=== PATIENT | male | born 1990 | race Caucasian/White ===

== ENCOUNTER 2020-07-12 21:39 | Observation (INO) ==
--- OUTSIDE RECORDS SUMMARY | 2020-07-12 21:41 | External Medical Summary | Continuity of Care Document ---
:1990 Author Name Tyrone Garcia Address Unavailable Unavailable , Care Team Providers Name Role Phone Unavailable Unavailable Unavailable Thomas Garcia Unavailable [email or web address] Kevin FONSECA Unavailable Unavailable Unavailable Unavailable Unavailable Problems Nephrolithiasis (592.0) (N20.0) Allergies and Adverse Reactions No Known Drug Allergies (Allergy) Medications oxyCODONE-Acetaminophen 10-325 MG Oral T ablet; TAKE 1 TABLET 4 TIMES DAILY NEEDED FOR PAIN. Radha Guzman Laie Start: 26-Nov-2015 Quantity: 30 Refills: 0 Adderall Radha HEREDIA Refills: 0 PriLOSEC OTC Radha BEJARANO Refills: 0 Procedures Procedures not documented Immunizations Immunizations not documented Family History Father Family history of kidney stones (V18.69) (Z84.1) Status: Act benny Social History - Smoking Status Never smoked tobacco Plan of Treatment Planned Observations Planned Goals not documented Results No Known Results Results not documented
[2020-07-12] MEDS ORDERED: ONDANSETRON INJ 2 MG/ML 2 ML VIAL IV STA (22:00)
[2020-07-12] MEDS ORDERED: KETOROLAC TROMETHAMINE 15 MG/ML VIAL IV STA (22:00)
[2020-07-12] MEDS ORDERED: FAMOTIDINE 20MG/5ML IV PUSH IV STA (22:00)
[2020-07-12] MEDS ORDERED: SODIUM CHLORIDE 0.9% 1000ML 1,000 ML IV SCH (22:00)
[2020-07-12] MEDS ORDERED: DiphenhydrAMINE HCL 50 MG/ML VIAL IV STA (22:00)
--- NOTE | 2020-07-12 22:05 | Emergency Department Note ---
Impression & Plan RUQ abdominal pain, Acute cholecystitis, Leukocytosis ED Provider Note NAME: SOLEDAD LINCOLN AGE: 29 SEX: M : 1990 ARRIVES VIA: Walk-In INFORMANT: [Patient][family] ED PROVIDER(S): [Renard Shi MD] CHIEF COMPLAINT: Epigastric pain HISTORY OF PRESENT ILLNESS: The patient is a 29-year-old male who presents to the ED with complaints of epigastric pain that has been coming and going for 2, maybe 3 weeks. Today's pain has been with him all day and will not subside. He describes the pain as a 10/10. The pain is nonradiating. He has had nausea without vomiting. He has not had diarrhea. There has been no chest pain per se, no shortness of breath. No fever, chills, cough or congestion. He states that he thinks he may be having difficulty digesting food. He has a history of kidney stones but this does not feel like a stone. REVIEW OF SYSTEMS: See HPI for pertinent positives and negatives. A total of ten systems were r eviewed and were otherwise negative. PMHx/PSHx: See Below SOCIAL HISTORY: See Below. PHYSICAL EXAM: GENERAL: Patient is in moderate distress from pain. Rolling around and writhing on the bed. HEENT: No acute trauma, normocephalic atraumatic, mucous membranes moist, no nasal congestion, no scleral icterus. NECK: No stridor, no adenopathy, no meningismus, trachea is midline. LUNGS: Clear to auscultation bilaterally, no wheeze, no rhonchi, breath sounds equal. HEART: Without murmurs gallops or rubs, regular rate and rhythm. ABDOMEN: Soft, significantly tender in the epigastrium and right upper quadrant, bowel sounds positive, no hernias, no peritonitis. EXTREMITIES: No cyanosis or edema, full range of motion of all the joints without pain or difficulty, no signs for acute trauma. NEUROLOGIC: Oriented x 3, no acute motor or sensory deficits, no focal weakness. SKIN: No rash, no jaundice, no diaphoresis. DIFFERENTIAL DIAGNOSIS: Appendicitis, testicular torsion, infections, diverticulitis, UTI, obstruction, free air, [place], ulcer, gastritis, mesenteric ischemia, aortic pathology, inflammatory bowel disease, renal colic, PUD, pancreatitis, biliary pathology, hernia, volvulus, constipation, as well as other pathologies. EMERGENCY DEPARTMENT COURSE/PROCEDURES: ECG: Indication was epigastric abdominal pain. The ECG shows a sinus tachycardia with a rate of 101. There is no ST elevation, no PVCs. The QTc is 466. Continuous Cardiac Monitoring: An order was placed for continuous cardiac monitoring. The monitor shows a rate of 88 with normal sinus rhythm. MEDICAL DECISION MAKING: There is a mild leukocytosis, this would be consistent with infection. There is a normal hemoglobin and platelet count. Renal panel testing does not show renal failure or significant electrolyte abnormality. Alk phos slightly elevated, the remaining liver enzymes were unremarkable. Lipase did not show any evidence for pancreatitis. Urinalysis did not show evidence for infection. Urine tox is pending. Chest film did not show mediastinal widening, free air or pneumonia. Abdominal and pelvis CT shows evidence for acute cholecystitis. Gallstones were seen. There was no bowel obstruction or other acute surgical process by CT scan. The patient was quite uncomfortable when he arrived. He received IV saline for hydration. He was given IV morphine and IV Toradol, he received IV Pepcid and IV Benadryl. He was eventually written for some IV Dilaudid for additional pain control. He did receive IV Zosyn for antibiotic coverage. I spoke to the patient about his findings. He does require a hospital stay. I did consult general surgery. A medical admission was recommended. Case management has been involved. I did consult the on-call hospitalist. Past Med/Surg History Medical History Kidney stones Renal colic Social History Smoking Status: Never smoker Tobacco Type: E-cigarettes / Vaping Feels Safe at Home: Yes Allergies Allergies Allergy/AdvReac Type Severity Reaction Status Date / Time No Known Allergies Allergy Verified 07/12/20 23:00 Home Meds Home Medications Medication Instructions Recorded Confirmed buprenorphine HCl [Subutex] 2 mg SUBLINGUAL DAILY 07/12/20 07/12/20 dextroamphetamine 30 mg PO BID 07/12/20 07/12/20 gabapentin 200 mg PO QID 07/12/20 07/12/20 ibuprofen 600 mg PO Q6H PRN 07/12/20 07/12/20 Results & Data (ED) Vital Signs Vital Signs - 24 hr 07/12/20 21:41 07/12/20 23:41 Temperature 36.6 C Temperature Source Oral Pulse Rate 95 H 88 Pulse Rate [Right Finger] 88 Respiratory Rate 20 20 Respiratory Effort / Characteristics Non-Labored Non-Labored Spontaneous Respiratory Depth Normal Normal Blood Pressure 156/83 H Blood Pressure [Left Arm] 130/78 Blood Pressure Mean 107 Blood Pressure Mean [Left Arm] 95 Pulse Oximetry 100 98 Oxygen Delivery Method Room Air Room Air Sepsis Recent Fever Within 48 Hours No Sepsis New/Unexplained Change in Mental Status No Sepsis Action Taken by Nursing No Action Required Home Medications Current Medication List: was personally reviewed by me Laboratory Data Attestation: I reviewed the patient's lab results. Result diagrams: 07/12/20 22:15 07/12/20 22:15 Lab Results 07/12/20 07/12/20 07/12/20 Range/Units 22:15 22:15 23:25 WBC 11.45 H (4.8-10.8) K/uL RBC 5.01 (4.7-6.1) M/uL Hgb 14.7 (14.0-18.0) g/dL Hct 41.9 L (42-52) % MCV 83.6 (80-100) fL MCH 29.3 (25-34) pg MCHC 35.1 (32-36) g/dL RDW Std Deviation 39.5 (36.4-46.3) fL RDW Coeff of Stevan 13.2 (11.5-14.5) % Plt Count 298 (130-400) K/uL MPV 9.8 (7.4-10.4) fL Immature Gran % (Auto) 0.2 % Neut % (Auto) 73.2 % Lymph % (Auto) 15.9 % [place] % (Auto) 8.4 % Eos % (Auto) 2.0 % Baso % (Auto) 0.3 % Neut # (Auto) 8.39 H (1.4-6.5) K/uL Lymph # (Auto) 1.82 (1.2-3.4) K/uL Turner # (Auto) 0.96 H (0.11-0.59) K/uL Eos # (Auto) 0.23 (0-0.5) K/uL Baso # (Auto) 0.03 (0-0.2) K/uL Immature Gran # (Auto) 0.02 (0.00-0.02) K/uL Sodium 141 (136-145) mmol/L Potassium 3.5 (3.5-5.1) mmol/L Chloride 104 (98-107) mmol/L Carbon Dioxide 30 (21-32) mmol/L Anion Gap 7.0 (3-11) BUN 8 (7-18) mg/dl Creatinine 1.14 (0.6-1.4) mg/dl Est Cr Clr Drug Dosing 109.2 ml/min Est GFR ( Amer) 98.8 Est GFR (Non-Af Amer) 85.2 BUN/Creatinine Ratio 7.0 L (10-20) Glucose 90 (70-99) mg/dl Calcium 10.2 H (8.5-10.1) mg/dl Total Bilirubin 0.4 (0.2-1) mg/dl AST 11 L (15-37) U/L ALT 18 (12-78) U/L Alkaline Phosphatase 135 H (45-117) U/L Troponin I < 0.015 (0-0.045) ng/ml Total Protein 8.6 H (6.4-8.2) gm/dl Albumin 4.0 (3.4-5.0) gm/dl Globulin 4.6 H (2.5-4.0) gm/dl Albumin/Globulin Ratio 0.9 (0.9-2) Lipase 124 (73-393) U/L Urine Color Yellow Urine Appearance Clear (Clear) Urine pH 8.5 H (4.5-7.5) Ur Specific [place] 1.024 (1.000-1.030) Urine Protein Negative (Negative) Urine Glucose (UA) Negative (Negative) Urine Ketones Negative (Negative) Urine Blood Negative (Negative) Urine Nitrite Negative (Negative) Urine Bilirubin Negative (Negative) Urine Urobilinogen Negative (Negative) Ur Leukocyte Esterase 1+ H (Negative) Urine WBC (Auto) 10-30 H (0-5) /hpf Urine RBC (Auto) 0-4 (0-4) /hpf U Hyaline Cast (Auto) 1-5 (0-5) /lpf U Epithel Cells (Auto) 10-20 H (0-5) /lpf Urine Bacteria (Auto) Negative (Negative) Administered Medications Piperacillin Sod/Tazobactam Sod (Zosyn) 4.5 gm in 120 mls @ 240 mls/hr IV NOW ONE Stop: 07/13/20 00:11 Last Admin: 07/12/20 23:49 Dose: 240 mls/hr Documented by: [id number] Morphine Sulfate (Morphine Sulfate 4 Mg/Ml 1 Ml Carp\Vial) 4 mg IV Q15M PRN PRN Reason: Pain Stop: 07/26/20 21:59 Last Admin: 07/12/20 23:38 Dose: 4 mg Documented by: [id number] Admin: 07/12/20 23:01 Dose: 4 mg Documented by: [id number] Admin: 07/12/20 22:19 Dose: 4 mg Documented by: [id number] Discontinued Medications Diphenhydramine HCl (Diphenhydramine Hcl 50 Mg/Ml Vial) 25 mg IV NOW STA Stop: 07/12/20 22:01 Last Admin: 07/12/20 22:19 Dose: 25 mg Documented by: [id number] Famotidine (Famotidine 20mg/5ml Iv Push) 20 mg IV ONE STA Stop: 07/12/20 22:01 Last Admin: 07/12/20 22:18 Dose: 20 mg Documented by: [id number] Sodium Chloride (Nss 1000ml) 1,000 mls @ 999 mls/hr IV .Q1H1M NIKO Stop: 07/12/20 23:00 Last Infusion: 07/12/20 22:58 Dose: 0 mls/hr Documented by: [id number] Admin: 07/12/20 22:18 Dose: 999 mls/hr Documented by: [id number] Ioversol (Ioversol 100ml) 93 ml IV ONCE ONE Stop: 07/12/20 23:08 Last Admin: 07/12/20 23:07 Dose: 1 ml Documented by: [id number] Ketorolac Tromethamine (Ketorolac Tromethamine 15 Mg/Ml Vial) 15 mg IV NOW STA Stop: 07/12/20 22:01 Last Admin: 07/12/20 22:18 Dose: 15 mg Documented by: [id number] Ondansetron HCl (Ondansetron Inj 2 Mg/Ml 2 Ml Vial) 4 mg IV NOW STA Stop: 07/12/20 22:01 Last Admin: 07/12/20 22:18 Dose: 4 mg Documented by: [id number] Imaging Data Attestation: I personally reviewed and interpreted this imaging study as foll ows: My Impression: Chest x-ray: There is no pneumonia, free air or pneumothorax. The lungs appear clear. Radiologist's Impression: Abdominal and pelvis CT without contrast: Gallstones within the gallbladder with gallbladder wall edema. The findings are worrisome for acute cholecystitis. No other acute findings by CT. Blood Pressure Blood Pressure Findings: Elevated blood pressure Blood Pressure Disposition: further management by hospitalist Discharge Plan Visit Data Chief Complaint: Food Bolus Stated Complaint: ESOPHAGEAL PAIN ED Provider: Renard Shi Discharge Problem: RUQ abdominal pain, Acute cholecystitis, Leukocytosis Patient Disposition: Admitted As Inpatient Condition: Fair Forms Stand Alone Forms: My [facility] Prescriptions Prescriptions: No Action dextroamphetamine 10 mg tablet 30 mg PO BID RF: 0 ibuprofen 200 mg Tablet 600 mg PO Q6H PRN (Reason: Pain) RF: 0 gabapentin 100 mg capsule 200 mg PO QID RF: 0 buprenorphine HCl [Subutex] 2 mg Tablet, Sublingual 2 mg SUBLINGUAL DAILY RF: 0 Referrals Referrals: Nadia Hicks MD [Primary Care Provider] - Discharge Problem: Leukocytosis Qualifiers: Leukocytosis type: unspecified Qualified Code(s): D72.829 - Elevated white blood cell count, unspecified
[2020-07-12] MEDS: MoRPHine SULFATE 4 MG/ML 1 ML CARP\\VIAL IV PRN ×3 (22:19→23:38)
[2020-07-12 22:29] LABS: Basophils # (auto) 0.03 K/uL (0-0.2); Basophils % (auto) 0.3 %; Eosinophils # (auto) 0.23 K/uL (0-0.5); Hematocrit (blood only) 41.9 % (42-52); Hemoglobin 14.7 g/dL (14.0-18.0); Immature Granulocytes # (auto) 0.02 K/uL (0.00-0.02); Immature Granulocytes % (auto) 0.2 %; Lymphocytes # (auto) 1.82 K/uL (1.2-3.4); Lymphocytes % (auto) 15.9 %; Mean Corpuscular Hemoglobin 29.3 pg (25-34); Mean Corpuscular Hgb Conc 35.1 g/dL (32-36); Mean Corpuscular Volume 83.6 fL (80-100); Mean Platelet Volume 9.8 fL (7.4-10.4); Monocytes # (auto) 0.96 K/uL (0.11-0.59); Monocytes % (auto) 8.4 %; Neutrophils # (auto) 8.39 K/uL (1.4-6.5); Neutrophils % (auto) 73.2 %; Platelet Count 298 K/uL (130-400); RDW Coefficient of Variation 13.2 % (11.5-14.5); RDW Standard Deviation 39.5 fL (36.4-46.3); Red Blood Count 5.01 M/uL (4.7-6.1); White Blood Count 11.45 K/uL (4.8-10.8)
[2020-07-12 22:48] LABS: Alanine Aminotransferase 18 U/L (12-78); Aspartate Aminotransferase 11 U/L (15-37); Blood Urea Nitrogen 8 mg/dl (7-18); Calcium 10.2 mg/dl (8.5-10.1); Carbon Dioxide 30 mmol/L (21-32); Chloride 104 mmol/L (98-107); Creatinine Clr Calc Pharmacy 109.2 ml/min; Est GFR (African American) 98.8; Est GFR (Non-African American) 85.2; Glucose 90 mg/dl (70-99); Lipase 124 U/L (73-393); Potassium 3.5 mmol/L (3.5-5.1); Sodium 141 mmol/L (136-145)
[2020-07-12 22:52] LABS: Albumin Globulin Ratio 0.9 (0.9-2); Alkaline Phosphatase 135 U/L (45-117); Bilirubin,Total 0.4 mg/dl (0.2-1); Globulin 4.6 gm/dl (2.5-4.0); Total Protein 8.6 gm/dl (6.4-8.2); Troponin I < 0.015 ng/ml (0-0.045)
[2020-07-12] MEDS ORDERED: IOVERSOL 100ml IV ONE (23:07)
[2020-07-12 23:39] LABS: Appearance Urine Clear (Clear); Bacteria Urine Automated Negative (Negative); Bilirubin Urine Negative (Negative); Blood Urine Negative (Negative); Color Urine Yellow; Glucose Urine UA Negative (Negative); Ketones Urine Negative (Negative); Leukocyte Esterase Urine 1+ (Negative); Nitrite Urine Negative (Negative); Protein Urine Negative (Negative); RBC Urine Automated 0-4 /hpf (0-4); Specific Gravity Urine 1.024 (1.000-1.030); Urobilinogen Urine Negative (Negative); pH Urine 8.5 (4.5-7.5)
[2020-07-12] MEDS ORDERED: PIPERACILLIN/TAZOBACTAM 4.5 GM/120 ML BAG IV ONE (23:42)
[2020-07-12] MEDS ORDERED: PIPERACILL/TAZOBAC CONSULT ACTIVE PRN (23:42)
[2020-07-12] MEDS ORDERED: HYDROmorphone INJ 1 MG/ML SYRINGE IV STA (23:49)
[2020-07-13 00:03] LABS: Amphetamines+Metham, Urine Pos (Neg); Barbiturates, Urine Neg (Neg); Benzodiazepine, Urine Neg (Neg); Cocaine, Urine Neg (Neg); MDMA (Ecstacy), Urine Pos (Neg); Methadone, Urine Neg (Neg); Opiate, Urine Pos (Neg); Phencyclidine, Urine Neg (Neg)
--- NOTE | 2020-07-13 00:48 | History & Physical Report ---
Date of Service July 13, 2020 Assessment & Plan (1) RUQ abdominal pain: 29-year-old male with past medical history ADHD, Tourette's presents with concerns of epigastric abdominal pain found to have concern for cholecystitis on abdomen pelvis CT imaging. Cholecystitis Abdomen pelvis CT ([facility]): Gallstones within the gallbladder with gallbladder wall edema. The findings are worrisome for acute cholecystitis. No other acute findings. We will make patient n.p.o. IVF with NSS@80 mls/hr IV Zosyn for antibiotic coverage Pain management with IV morphine 2 mg every 4 as needed IV Zofran PRN for nausea We will order preop COVID testing Appreciate surgery consult Opiate dependence Secondary to oxycodone dependence for diagnosis of kidney stones 4 months ago Continue Subutex 2 mg SL daily. Patient notes that he does not take this every day, just as needed Tourette's syndrome Gabapentin 200 mg 4 times daily ADHD Continue dextroamphetamine 30 mg twice daily FEN/GI: N.p.o. NSS@80 DVT prophylaxis: Lovenox SQ Full code Dispo: MedSurg History of Present Illness Chief Complaint: Abdominal pain Primary Care Provider: Nadia Hicks MD 29-year-old male with past medical history ADHD, Tourette's presents with concerns of epigastric abdominal pain that has been ongoing for the past 2 to 3 weeks. Usually pain goes away on its own, however today pain was unrelenting and did not subside so patient presented to ED. Described as sharp intermittent, nonradiating, 10 out of 10 on severity scale. Patient notes pain is alleviated by taking prescribed Suboxone and gabapentin. No known exacerbating factors. Patient has never had abdominal pain like this ever before. Patient denies any fevers, chills, sweats, nausea, vomiting, diarrhea, black or tarry stools, chest pain, shortness of breath, palpitations, edema, dec reased appetite or ingestion of suspicious foods, known sick contacts or recent travel anywhere. Patient with no other acute concerns or complaints. Pertinent labs: WBC 11.45, alk phos 135, LFTs WNL, lipase WNL, largely unremarkable CBC CMP Chest x-ray: No acute process per interpretation Abdomen pelvis CT ([facility]): Gallstones within the gallbladder with gallbladder wall edema. The findings are worrisome for acute cholecystitis. No other acute findings. ER course: IV diphenhydramine 25 mg, IV famotidine 20 mg, IV Dilaudid 1 mg, IV Toradol 15 mg, IV morphine 4 mg, IV Zofran 4 mg, IV Zosyn 4.5 g Abdominal surgical history: None Allergies Allergy/AdvReac Type Severity Reaction Status Date / Time No Known Allergies Allergy Verified 07/12/20 23:00 Home Medications Home Medications Medication Instructions Recorded Confirmed Type buprenorphine HCl [Subutex] 2 mg SUBLINGUAL DAILY 07/12/20 07/12/20 History dextroamphetamine 30 mg PO BID 07/12/20 07/12/20 History gabapentin 200 mg PO QID 07/12/20 07/12/20 History ibuprofen 600 mg PO Q6H PRN 07/12/20 07/12/20 History Past Med/Surg History Medical History Kidney stones Renal colic Social History Smoking Status: Current some day smoker Tobacco Type: E-cigarettes / Vaping Second Hand Exposure: No; Do You Dip or Chew Tobacco: No; Tobacco Cessation Education Requested by Patient: No Hx Alcohol Use: No Hx Substance Use: Yes Preferred Language: Kittitian Communication Ability: Effective Event Marketing Coordinator Required: No Beliefs That Will Affect Care: None Current Living Situation: Alone Other Information That Helps Us Care for You: No Feels Safe at Home: Yes Safety Concerns: Feels Safe At This Time Assistive Devices: None Review of Systems Review of Systems: All systems reviewed & are unremarkable except as noted in HPI & below Physical Exam Constitutional: + acute distress Eyes: PERRL, conjunctivae normal, anicteric sclerae ENMT: external ear and nose normal, oropharynx normal Respiratory: normal respiratory effort, lungs clear to auscultation Cardiovascular: RRR, no murmur, no edema Gastrointestinal (Abdomen): Inspection/Auscultation: normal bowel sounds P ercussion/Palpation: + abdomen tender (Right upper quadrant) and abdomen soft Positive Oropeza's Skin: no rashes, warm and dry Psychiatric: A+Ox3, euthymic affect Results & Data Results & Data ([facility]) Vital Signs (Past 12 Hours) Vital Signs Temp Pulse Pulse Resp BP BP Pulse Ox 09/26/20 23:41 88 88 20 130/78 98 07/12/20 21:41 36.6 C 95 H 20 156/83 H 100 Laboratory Results Laboratory Results - last 24 hr 07/12/20 07/12/20 07/12/20 22:15 22:15 23:25 WBC 11.45 H RBC 5.01 Hgb 14.7 Hct 41.9 L MCV 83.6 MCH 29.3 MCHC 35.1 RDW Std Deviation 39.5 RDW Coeff of Stevan 13.2 Plt Count 298 MPV 9.8 Immature Gran % (Auto) 0.2 Neut % (Auto) 73.2 Lymph % (Auto) 15.9 [place] % (Auto) 8.4 Eos % (Auto) 2.0 Baso % (Auto) 0.3 Neut # (Auto) 8.39 H Lymph # (Auto) 1.82 [place] # (Auto) 0.96 H Eos # (Auto) 0.23 Baso # (Auto) 0.03 Immature Gran # (Auto) 0.02 Sodium 141 Potassium 3.5 Chloride 104 Carbon Dioxide 30 Anion Gap 7.0 BUN 8 Creatinine 1.14 Est Cr Clr Drug Dosing 109.2 Est GFR ( Amer) 98.8 Est GFR (Non-Af Amer) 85.2 BUN/Creatinine Ratio 7.0 L Glucose 90 Calcium 10.2 H Total Bilirubin 0.4 AST 11 L ALT 18 Alkaline Phosphatase 135 H Troponin I < 0.015 Total Protein 8.6 H Albumin 4.0 Globulin 4.6 H Albumin/Globulin Ratio 0.9 Lipase 124 Urine Color Yellow Urine Appearance Clear Urine pH 8.5 H Ur Specific [place] 1.024 Urine Protein Negative Urine Glucose (UA) Negative Urine Ketones Negative Urine Blood Negative Urine Nitrite Negative Urine Bilirubin Negative Urine Urobilinogen Negative Ur Leukocyte Esterase 1+ H Urine WBC (Auto) 10-30 H Urine RBC (Auto) 0-4 U Hyaline Cast (Auto) 1-5 U Epithel Cells (Auto) 10-20 H Urine Bacteria (Auto) Negative Urine Opiates Screen U Codeine Confrm GC/MS Ur Morphine (GC/MS) Ur Hydrocodone (GC/MS) Ur Norhydrocodone Ur Noroxycodone Urine Oxycodone (GC/MS) U Oxymorphone GC/MS Ur Methadone, Qual Ur Hydromorphone (GC/MS) Urine Barbiturates Ur Phencyclidine (PCP) U Amphetamines Confirm U Amphetamin/Meth Scrn U Methamphetamin Confrm Urine MDEA MDMA (Ecstasy) Screen MDMA Urine MDMA U Benzodiazepines Scrn Ur Cocaine Metabolite U Marijuana (THC) Screen Drug Screen Comment 07/12/20 07/12/20 23:25 23:25 WBC RBC Hgb Hct MCV MCH MCHC RDW Std Deviation RDW Coeff of Stevan Plt Count MPV Immature Gran % (Auto) Neut % (Auto) Lymph % (Auto) [place] % (Auto) Eos % (Auto) Baso % (Auto) Neut # (Auto) Lymph # (Auto) [place] # (Auto) Eos # (Auto) Baso # (Auto) Immature Gran # (Auto) Sodium Potassium Chloride Carbon Dioxide Anion Gap BUN Creatinine Est Cr Clr Drug Dosing Est GFR ( Amer) Est GFR (Non-Af Amer) BUN/Creatinine Ratio Glucose Calcium Total Bilirubin AST ALT Alkaline Phosphatase Troponin I Total Protein Albumin Globulin Albumin/Globulin Ratio Lipase Urine Color Urine Appearance Urine pH Ur Specific [place] Urine Protein Urine Glucose (UA) Urine Ketones Urine Blood Urine Nitrite Urine Bilirubin Urine Urobilinogen Ur Leukocyte Esterase Urine WBC (Auto) Urine RBC (Auto) U Hyaline Cast (Auto) U Epithel Cells (Auto) Urine Bacteria (Auto) Urine Opiates Screen Pos H U Codeine Confrm GC/MS Pending Ur Morphine (GC/MS) Pending Ur Hydrocodone (GC/MS) Pending Ur Norhydrocodone Pending Ur Noroxycodone Pending Urine Oxycodone (GC/MS) Pending U Oxymorphone GC/MS Pending Ur Methadone, Qual Neg Ur Hydromorphone (GC/MS) Pending Urine Barbiturates Neg Ur Phencyclidine (PCP) Neg U Amphetamines Confirm Pending U Amphetamin/Meth Scrn Pos H U Methamphetamin Confrm Pending Urine MDEA Pending MDMA (Ecstasy) Screen Pos H MDMA Pending Urine MDMA Pending U Benzodiazepines Scrn Neg Ur Cocaine Metabolite Neg U Marijuana (THC) Screen Neg Drug Screen Comment Pending Medications Administered Current Inpatient Medications Miscellaneous Information (Piperacill/Tazobac Consult Active) 1 ea N/A UD PRN PRN Reason: Consult Stop: 08/11/20 23:41 Morphine Sulfate (Morphine Sulfate 4 Mg/Ml 1 Ml Carp\Vial) 4 mg IV Q15M PRN PRN Reason: Pain Stop: 07/26/20 21:59 Last Admin: 07/12/20 23:38 Dose: 4 mg Documented by: Code Status & VTE Plan Code Status Full Supervising Physician Co-Signing Physician Notes Patient seen and examined, chart reviewed, case discussed with Dr. Galvez and I agree with his assessment and plan as documented above. Briefly, patient is a 29yo male with history of renal stones, ADHD presenting with acute cholecystitis. Patient states he takes Subutex 2mg daily as needed for opiate cravings. Medication not on PDMP or on medication fill list when discussed with Pharmacy. Will confirm again with patient On exam he is afebrile, HD stable, in mild distress secondary to discomfort Nontoxic in appearance HEENT - NC/AT, PERRL, EOMI, MMM, Neck supple Heart - +S1/S2, regular, no m/r/g Lungs - CTA Abd - +BS, soft, NT/ND Ext - No edema Labs and images reviewed. Elevated ABC=11.45, A=135 CT with gallstones with gallbladder wall edema. FIndings worrisome for acute lesia Surgery consulted and requesting admission to medical service -Admit to medical -Zosyn -Pain control -Will confirm patient's Subutex dose and prescriber -Remainder of plan as above Resident Activity Tracking Resident Involvement: Resident Care Provided Care Provided: Adult Hospital Medicine
[2020-07-13] MEDS ORDERED: ALUMINUM/MAGNESIUM SUSP 30 ML UDC PO PRN (02:13)
[2020-07-13] MEDS ORDERED: ONDANSETRON INJ 2 MG/ML 2 ML VIAL IV PRN (02:13)
[2020-07-13] MEDS ORDERED: PIPERACILL/TAZOBAC CONSULT ACTIVE PRN (02:13)
[2020-07-13] MEDS ORDERED: ACETAMINOPHEN 325 MG TAB PO PRN (02:13)
[2020-07-13] MEDS: SODIUM CHLORIDE 0.9% 1000ML 1,000 ML IV SCH ×2 (02:51→16:14)
[2020-07-13] MEDS: [UNRECOGNIZED DRUG - OTHER] SCH ×3 (02:51→15:30)
--- NOTE | 2020-07-13 03:39 | Billing Data ---
Date of Service July 13, 2020 Coding Level of Care Code 45601 Initial Inpt Care Lvl 3
[2020-07-13] MEDS: PIPERACILLIN/TAZOBACTAM 3.375 GM in DEXTROSE 5% 100 ML IV SCH ×3 (04:53→21:21)
[2020-07-13 06:09] LABS: Basophils # (auto) 0.05 K/uL (0-0.2); Basophils % (auto) 0.5 %; Eosinophils % (auto) 3.9 %; Hematocrit (blood only) 38.1 % (42-52); Hemoglobin 12.1 g/dL (14.0-18.0); Immature Granulocytes # (auto) 0.01 K/uL (0.00-0.02); Immature Granulocytes % (auto) 0.1 %; Lymphocytes # (auto) 2.79 K/uL (1.2-3.4); Lymphocytes % (auto) 26.9 %; Mean Corpuscular Hemoglobin 27.3 pg (25-34); Mean Corpuscular Hgb Conc 31.8 g/dL (32-36); Mean Platelet Volume 9.8 fL (7.4-10.4); Monocytes # (auto) 1.23 K/uL (0.11-0.59); Monocytes % (auto) 11.8 %; Neutrophils % (auto) 56.8 %; Platelet Count 257 K/uL (130-400); RDW Coefficient of Variation 13.4 % (11.5-14.5); RDW Standard Deviation 42.4 fL (36.4-46.3); Red Blood Count 4.43 M/uL (4.7-6.1); White Blood Count 10.38 K/uL (4.8-10.8)
[2020-07-13 06:40] LABS: Albumin Level 3.1 gm/dl (3.4-5.0); BUN Creatinine Ratio 7.7 (10-20); Calcium 8.8 mg/dl (8.5-10.1); Creatinine Clr Calc Pharmacy 139.8 ml/min; Est GFR (African American) 132.1; Est GFR (Non-African American) 113.9; Potassium 3.7 mmol/L (3.5-5.1)
[2020-07-13 07:07] LABS: Albumin Globulin Ratio 0.9 (0.9-2); Bilirubin,Total 0.6 mg/dl (0.2-1); Globulin 3.5 gm/dl (2.5-4.0); Total Protein 6.6 gm/dl (6.4-8.2)
--- NOTE | 2020-07-13 08:34 | CT Scan Report ---
CT OF THE ABDOMEN AND PELVIS WITH CONTRAST CLINICAL HISTORY: Upper abdominal pain. Possible pancreatitis or bowel obstruction. COMPARISON STUDY: CT of the abdomen and pelvis November 15, 2015. Renal ultrasound September 18, 2018. TECHNIQUE: Following IV administration of Optiray-320, axial images of the abdomen and pelvis were ob tained from the lung bases to the proximal femurs. Images were reviewed in the axial, sagittal, and c oronal planes. IV contrast was administered without complication. Automated exposure control was uti lized for the study. A dose lowering technique was utilized adhering to the principles of ALARA. CT DOSE: 587.69 mGy.cm FINDINGS: Lung bases are unremarkable. No pneumatosis, free air or portal venous gas is present. Live r, spleen, adrenal glands, pancreas and kidneys are normal. There is no pancreatic ductal dilatation. There is no biliary ductal dilatation. There are multiple gallstones within the gallbladder. There i s moderate gallbladder wall thickening. There is minimal adjacent infiltration. The caliber and wall thickness of small and large bowel are normal. The appendix is normal. There is no hydronephrosis. Th ere are no suspicious skeletal lesions. There is no lymphadenopathy. Major vasculature is patent. IMPRESSION: Cholelithiasis and gallbladder wall thickening. The findings suggest acute cholecystitis . ACT 112: Negative or not required by law. Electronically signed by: Nathaniel Alex M.D. 07/13/2020 8:33 AM
--- NOTE | 2020-07-13 08:42 | XRay Report ---
XR chest 1V portable HISTORY: 29 years-old Male epig pain acute epigastric abdominal pain COMPARISON: CT abdomen and pelvis of same day TECHNIQUE: Portable AP view of the chest FINDINGS: Cardiomediastinal and hilar silhouettes are within normal limits. There is no pneumothorax, pleural e ffusion, airspace consolidation or overt pulmonary edema. Bones of the chest appear grossly intact. IMPRESSION: No acute process. ACT 112: Negative or not required by law. The above report was generated using voice recognition software. It may contain grammatical, syntax o r spelling errors. Electronically signed by: Ayaz Pena M.D. 07/13/2020 8:40 AM
[2020-07-13] MEDS: ENOXAPARIN INJ 40 MG/0.4 ML SYR SQ SCH (09:39)
[2020-07-13] MEDS: buprenorphine HCL 2 MG SUBL SL SCH (09:39)
[2020-07-13] MEDS: GABAPENTIN 100 MG CAP PO SCH ×4 (09:40→21:22)
--- NOTE | 2020-07-13 10:04 | Surgery Consultation ---
Date of Consultation July 13, 2020 Assessment & Plan (1) RUQ abdominal pain: (2) Acute cholecystitis: pt is a 29 [id number] male who was admitted to [facility] for acute cholecystitis, IMP: acute cholecystitis, cholelithiasis, Plan, I recommend to do laparoscopic cholecystectomy , possible open or cholangiogram tomorrow, D/W benefits, risks and alternatives of the surgery, the risks - infection, bleeding, injury CBD, may need ERCP, pt understood, he agrees with the surgery, I answered all questions, U/S study for gallbladder, NPO after MN, clear diet now, Present on Admission?: Yes (3) Cholelithiasis: Supervising Physician Co-Signing Physician Notes Patient seen and examined, chart reviewed, case discussed with Dr. Galvez and I agree with his assessment and plan as documented above. Briefly, patient is a 29yo male with history of renal stones, ADHD presenting with acute cholecystitis. Patient states he takes Subutex 2mg daily as needed for opiate cravings. Medication not on PDMP or on medication fill list when discussed with Pharmacy. Will confirm again with patient On exam he is afebrile, HD stable, in mild distress secondary to discomfort Nontoxic in appearance HEENT - NC/AT, PERRL, EOMI, MMM, Neck supple Heart - +S1/S2, regular, no m/r/g Lungs - CTA Abd - +BS, soft, NT/ND Ext - No edema Labs and images reviewed. Elevated ABC=11.45, A=135 CT with gallstones with gallbladder wall edema. FIndings worrisome for acute lesia Surgery consulted and requesting admission to medical service -Admit to medical -Zosyn -Pain control -Will confirm patient's Subutex dose and prescriber -Remainder of plan as above History of Present Illness Attending Physician: Dimitrios Randhawa MD History of Present Illness Chief Complaint: Abdominal pain Primary Care Provider: Nadia Hicks MD 29-year-old male with past medical history ADHD, Tourette's presents with concerns of epigastric abdominal pain that has been ongoing for the past 2 to 3 weeks. Usually pain goes away on its own, however today pain was unrelenting and did not subside so patient presented to ED. Described as sharp intermittent, nonradiating, 10 out of 10 on severity scale. Patient notes pain is alleviated by taking prescribed Suboxone and gabapentin. No known exacerbating factors. Patient has never had abdominal pain like this ever before. Patient denies any fevers, chills, sweats, nausea, vomiting, diarrhea, black or tarry stools, chest pain, shortness of breath, palpitations, edema, decreased appetite or ingestion of suspicious foods, known sick contacts or recent travel anywhere. Patient with no other acute concerns or complaints. Pertinent labs: WBC 11.45, alk phos 135, LFTs WNL, lipase WNL, largely unremarkable CBC CMP Chest x-ray: No acute process per interpretation Abdomen pelvis CT ([facility]): Gallstones within the gallbladder with gallbladder wall edema. The findings are worrisome for acute cholecystitis. No other acute findings. ER course: IV diphenhydramine 25 mg, IV famotidine 20 mg, IV Dilaudid 1 mg, IV Toradol 15 mg, IV morphine 4 mg, IV Zofran 4 mg, IV Zosyn 4.5 g I ( Rosanna Mclaughlin MD ) got a call for consult acute cholecystitis, I reviewed pt's H/P, labs, CT scan with pt, pt has mild RUQ pain now, Abdominal surgical history: None Allergies Allergy/AdvReac Type Severity Reaction Status Date / Time No Known Allergies Allergy Verified 07/12/20 23:00 Home Medications Home Medications Medication Instructions Recorded Confirmed Type buprenorphine HCl [Subutex] 2 mg SUBLINGUAL DAILY 07/12/20 07/12/20 History dextroamphetamine 30 mg PO BID 07/12/20 07/12/20 History gabapentin 200 mg PO QID 07/12/20 07/12/20 History ibuprofen 600 mg PO Q6H PRN 07/12/20 07/12/20 History Past Med/Surg History Medical History Kidney stones Renal colic Social History Smoking Status: Current some day smoker Tobacco Type: E-cigarettes / Vaping Second Hand Exposure: No; Do You Dip or Chew Tobacco: No; Tobacco Cessation Education Requested by Patient: No Hx Alcohol Use: No Hx Substance Use: Yes Preferred Language: Yoruba Communication Ability: Effective Clay Modeler Required: No Beliefs That Will Affect Care: None Current Living Situation: Alone Other Information That Helps Us Care for You: No Feels Safe at Home: Yes Safety Concerns: Feels Safe At This Time Assistive Devices: None Review of Systems Review of Systems: All systems reviewed & are unremarkable except as noted in HPI & below Allergies Allergy/AdvReac Type Severity Reaction Status Date / Time No Known Allergies Allergy Verified 07/12/20 23:00 Home Medications Home Medications Medication Instructions Recorded Confirmed Type buprenorphine HCl [Subutex] 2 mg SUBLINGUAL DAILY 07/12/20 07/12/20 History dextroamphetamine 30 mg PO BID 07/12/20 07/12/20 History gabapentin 200 mg PO QID 07/12/20 07/12/20 History ibuprofen 600 mg PO Q6H PRN 07/12/20 07/12/20 History Patient History Medical History Kidney stones Renal colic Social History Smoking Status: Current some day smoker Tobacco Type: E-cigarettes / Vaping Second Hand Exposure: No; Do You Dip or Chew Tobacco: No; Tobacco Cessation Education Requested by Patient: No Hx Alcohol Use: No Hx Substance Use: Yes Preferred Language: Yoruba Communication Ability: Effective Clay Modeler Required: No Beliefs That Will Affect Care: None Current Living Situation: Alone Other Information That Helps Us Care for You: No Feels Safe at Home: Yes Safety Concerns: Feels Safe At This Time Assistive Devices: None Review of Systems Review of Systems: All systems reviewed & are unremarkable except as noted in HPI & below Constitutional: as per Subjective / HPI Eyes: as per Subjective / HPI Ear, Nose, Mouth, Throat: as per Subjective / HPI Respiratory: as per Subjective / HPI Cardiovascular: as per Subjective / HPI Gastrointestinal: as per Subjective / HPI Genitourinary: + as per Subjective / HPI and + problem reported (kidney stone) Musculoskeletal: as per Subjective / HPI Integumentary: as per Subjective / HPI Neurologic: as per Subjective / HPI Psychiatric: as per Subjective / HPI Endocrine: as per Subjective / HPI Hematologic / Lymphatic: as per Subjective / HPI Allergy / Immunological: as per Subjective / HPI Physical Exam Constitutional: WD/WN, vitals as above well developed and well nourished Eyes: PERRL, conjunctivae normal, anicteric sclerae ENMT: external ear and nose normal, oropharynx normal Neck: trachea midline, no thyromegaly Respiratory: normal respiratory effort, lungs clear to auscultation normal respiratory effort Cardiovascular: RRR, no murmur, no edema Rate/Rhythm: regular rate and regular rhythm Heart Sounds: normal S1 and normal S2 Gastrointestinal (Abdomen): soft, mild tenderness at RUQ, no rebound pain, no distend, BS + Musculoskeletal: no cyanosis or clubbing, extremities motor strength 5/5 Skin: no rashes, warm and dry Neurologic: patellar DTR's 2+ bilat, sensation intact Psychiatric: Orientation: alert and oriented x 3 Results & Data ([facility]) Vital Signs (Past 12 Hours) Vital Signs Temp Pulse Pulse Resp BP Pulse Ox Pulse Ox 07/13/20 07:32 37.3 C 91 H 20 121/77 96 07/13/20 02:05 37.1 C 95 H 12 133/87 99 99 07/13/20 01:15 87 20 135/93 97 07/12/20 23:41 88 88 20 130/78 98 Laboratory Results Abnormal lab results 07/12/20 07/12/20 07/12/20 Range/Units 22:15 22:15 23:25 WBC 11.45 H (4.8-10.8) K/uL RBC (4.7-6.1) M/uL Hgb (14.0-18.0) g/dL Hct 41.9 L (42-52) % MCHC (32-36) g/dL Neut # (Auto) 8.39 H (1.4-6.5) K/uL Hunt # (Auto) 0.96 H (0.11-0.59) K/uL Chloride (98-107) mmol/L BUN/Creatinine Ratio 7.0 L (10-20) Calcium 10.2 H (8.5-10.1) mg/dl AST 11 L (15-37) U/L Alkaline Phosphatase 135 H (45-117) U/L Total Protein 8.6 H (6.4-8.2) gm/dl Albumin (3.4-5.0) gm/dl Globulin 4.6 H (2.5-4.0) gm/dl Urine pH 8.5 H (4.5-7.5) Ur Leukocyte Esterase 1+ H (Negative) Urine WBC (Auto) 10-30 H (0-5) /hpf U Epithel Cells (Auto) 10-20 H (0-5) /lpf Urine Opiates Screen (Neg) U Amphetamin/Meth Scrn (Neg) MDMA (Ecstasy) Screen (Neg) 07/12/20 07/13/20 07/13/20 Range/Units 23:25 05:33 05:33 WBC (4.8-10.8) K/uL RBC 4.43 L (4.7-6.1) M/uL Hgb 12.1 L (14.0-18.0) g/dL Hct 38.1 L (42-52) % MCHC 31.8 L (32-36) g/dL Neut # (Auto) (1.4-6.5) K/uL Hunt # (Auto) 1.23 H (0.11-0.59) K/uL Chloride 108 H (98-107) mmol/L BUN/Creatinine Ratio 7.7 L (10-20) Calcium (8.5-10.1) mg/dl AST 11 L (15-37) U/L Alkaline Phosphatase (45-117) U/L Total Protein (6.4-8.2) gm/dl Albumin 3.1 L (3.4-5.0) gm/dl Globulin (2.5-4.0) gm/dl Urine pH (4.5-7.5) Ur Leukocyte Esterase (Negative) Urine WBC (Auto) (0-5) /hpf U Epithel Cells (Auto) (0-5) /lpf Urine Opiates Screen Pos H (Neg) U Amphetamin/Meth Scrn Pos H (Neg) MDMA (Ecstasy) Screen Pos H (Neg) Diagnostic Findings CT OF THE ABDOMEN AND PELVIS WITH CONTRAST CLINICAL HISTORY: Upper abdominal pain. Possible pancreatitis or bowel obstruction. COMPARISON STUDY: CT of the abdomen and pelvis November 15, 2015. Renal ultra sound September 18, 2018. TECHNIQUE: Following IV administration of Optiray-320, axial images of the abdomen and pelvis were obtained from the lung bases to the proximal femurs. Images were reviewed in the axial, sagittal, and coronal planes. IV contrast was administered without complication. Automated exposure control was utilized for the study. A dose lowering technique was utilized adhering to the principles of ALARA. CT DOSE: 587.69 mGy.cm FINDINGS: Lung bases are unremarkable. No pneumatosis, free air or portal venous gas is present. Liver, spleen, adrenal glands, pancreas and kidneys are normal. There is no pancreatic ductal dilatation. There is no biliary ductal dilatation. There are multiple gallstones within the gallbladder. There is moderate gallbladder wall thickening. There is minimal adjacent infiltration. The caliber and wall thickness of small and large bowel are normal. The appendix is normal. There is no hydronephrosis. There are no suspicious skeletal lesions. There is no lymphadenopathy. Major vasculature is patent. IMPRESSION: Cholelithiasis and gallbladder wall thickening. The findings suggest acute cholecystitis.
--- NOTE | 2020-07-13 11:30 | Ultrasound Report ---
ABDOMINAL ULTRASOUND, RIGHT UPPER QUADRANT HISTORY: acute cholecystitis, liver and gallbladder. COMPARISON: CT of the abdomen and pelvis July 12, 2020. FINDINGS: Liver is sonographically normal. There is no biliary ductal dilatation. The common bile anastasiia t measures 5 mm in caliber. No common bile duct calculi are identified although the distal common cary e duct is obscured. There are numerous gallstones within the gallbladder. There is sludge within the gallbladder. Moderate gallbladder wall thickening is noted. Gallbladder wall is edematous. Pancreas i s unremarkable by sonography. There is no right hydronephrosis. IMPRESSION: 1. Cholelithiasis and gallbladder wall thickening. The findings favor acute cholecystitis. 2. No biliary ductal dilatation. ACT 112: Negative or not required by law. Electronically signed by: Nathaniel Alex M.D. 07/13/2020 11:28 AM
--- NOTE | 2020-07-13 11:35 | Electrocardiogram Report ---
Test Reason : Blood Pressure : / mmHG Vent. Rate : 101 BPM Atrial Rate : 101 BPM P-R Int : 114 ms QRS Dur : 084 ms QT Int : 360 ms P-R-T Axes : 058 062 055 degrees QTc Int : 466 ms Sinus tachycardia Otherwise normal ECG When compared with ECG of 09-NOV-2002 13:05, Confirmed by Rosalio Newsome ([id number]) on 07/13/2020 11:35:11 AM Referred By: REFERRED SELF Confirmed By:Rosalio Newsome
--- NOTE | 2020-07-13 13:40 | History & Physical Bridge Note ---
Date of Service July 13, 2020 History & Physical Bridge Note I have examined the patient, reviewed the History & Physical and in the interval since the performance of the History & Physical I have noted the following changes of clinical significance: Seen by General Surgery today U/S performed which again showed cholelithiasis and gallbladder wall thickening without biliary ductal dilation --> findings favor acute cholecystitis. Continue Zosyn, IVF, pain control and antiemetics as ordered Given clear liquid diet for today by general surgery for today VSS -- BP 121/77, pulse 91bpm, T37.3C, 96% on RA. CXR negative for acute process. EKG sinus tach, 101bpm, otherwise normal appearing. CBC with WBC trending down. H/h 12.1/38.1 -- anemia dilutional secondary to IVF but stable. No s/sx bleeding at this time. LFTs -- Tbili wnl at 0.6, AST low at 11, ALT/Alk phos wnl at 13, 107 respectively. NPO after midnight for OR tomorrow with Dr. Mclaughlin
[2020-07-14] MEDS: [UNRECOGNIZED DRUG - OTHER] SCH ×3 (00:48→15:47)
[2020-07-14] MEDS: PIPERACILLIN/TAZOBACTAM 3.375 GM in DEXTROSE 5% 100 ML IV SCH ×3 (05:07→20:45)
[2020-07-14] MEDS: SODIUM CHLORIDE 0.9% 1000ML 1,000 ML IV SCH ×2 (05:08→16:48)
[2020-07-14 07:47] LABS: Basophils # (auto) 0.07 K/uL (0-0.2); Basophils % (auto) 1.1 %; Eosinophils # (auto) 0.41 K/uL (0-0.5); Eosinophils % (auto) 6.4 %; Hemoglobin 12.3 g/dL (14.0-18.0); Immature Granulocytes # (auto) 0.01 K/uL (0.00-0.02); Immature Granulocytes % (auto) 0.2 %; Lymphocytes # (auto) 2.11 K/uL (1.2-3.4); Lymphocytes % (auto) 33.1 %; Mean Corpuscular Hemoglobin 27.5 pg (25-34); Mean Corpuscular Hgb Conc 32.4 g/dL (32-36); Monocytes # (auto) 0.48 K/uL (0.11-0.59); Monocytes % (auto) 7.5 %; Neutrophils # (auto) 3.29 K/uL (1.4-6.5); Neutrophils % (auto) 51.7 %; Platelet Count 221 K/uL (130-400); RDW Coefficient of Variation 13.1 % (11.5-14.5); RDW Standard Deviation 40.4 fL (36.4-46.3); Red Blood Count 4.47 M/uL (4.7-6.1); White Blood Count 6.37 K/uL (4.8-10.8)
[2020-07-14 08:11] LABS: Albumin Level 2.9 gm/dl (3.4-5.0); BUN Creatinine Ratio 9.6 (10-20); Bilirubin Direct 0.2 mg/dl (0-0.2); Calcium 9.2 mg/dl (8.5-10.1); Creatinine Clr Calc Pharmacy 151.8 ml/min; Est GFR (African American) 136.6; Est GFR (Non-African American) 117.8; Potassium 3.7 mmol/L (3.5-5.1)
[2020-07-14 08:14] LABS: Bilirubin,Total 0.7 mg/dl (0.2-1); Total Protein 6.6 gm/dl (6.4-8.2)
[2020-07-14] MEDS: buprenorphine HCL 2 MG SUBL SL SCH (09:00)
[2020-07-14] MEDS: GABAPENTIN 100 MG CAP PO SCH ×4 (10:23→20:44)
--- NOTE | 2020-07-14 11:21 | Hospitalist Progress Note ---
Date of Service July 14, 2020 Assessment & Plan (1) Acute cholecystitis: NPO for surgery today - continue IVF with NSS@80 mls/hr Continue IV Zosyn Continue pain management, antiemetics For cholecystectomy today (2) Cholelithiasis: As seen on CT (3) Opiate dependence: Secondary to oxycodone dependence for diagnosis of kidney stones 4 months ago Continue Subutex 2 mg SL daily. Patient notes that he does not take this every day, just as needed (4) Tourette disease: Continue gabapentin 200 mg 4 times daily (5) ADHD: hold dextroamphetamine 30 mg while hospitalized (6) DVT prophylaxis: enoxaparin - held for surgery today, can resume tomorrow am Admission and Anticipated Discharge Date Admission Date: July 13, 2020 Subjective Mr. Austin continues to have right upper quadrant pain but otherwise has no complaints. ROS Constitutional: no chills, aches, sweats or fever Respiratory: no sob,cough, sputum, or wheezing Cardiac: no chest pain, palpitations, edema, orthopnea or lightheadedness GI: no abdominal pain, nausea, vomiting, diarrhea or constipation : no dysuria or hesitancy Extremities: no joint pain or weakness Skin: no rash All other systems reviewed and negative Physical Exam Physical Exam: General: no distress Eyes: normal inspection, PERLL Respiratory: chest non tender, clear to auscultation, normal breath sounds, no respiratory distress, no accessory muscle use Cardiac: regular rate and rhythm, no rub or gallop, no murmur, no edema, no jvd GI/: active bowel sounds, ruq tenderness to palpation, soft, non distended Extremities: normal range of motion, normal strength, non tender Neuro/Psych: alert and oriented x 3, normal mood and affect Skin: normal color, dry Results & Data Results & Data ([facility]) Vital Signs (Past 12 Hours) Vital Signs Temp Pulse Resp BP Pulse Ox 07/14/20 07:34 36.7 C 88 20 121/72 97 07/13/20 23:26 36.9 C 89 19 118/76 98 PG Care Time/CCT Total # of Minutes Spent Total Time Spent with Patient: Total time spent is greater than 50% in [facility] (as documented) at patient's floor/unit and/or counseling patient: Coding Level of Care Code 02541 Subseq Hosp Care Lvl 2 Diagnoses Acute cholecystitis K81.0 Cholelithiasis K80.20 Opiate dependence F11.20 Tourette disease F95.2 ADHD F90.9 DVT prophylaxis Z29.9
[2020-07-14] MEDS ORDERED: BACITRACIN OINT 15 GM TUBE ONE (11:52)
[2020-07-14] MEDS ORDERED: BUPIVACAINE 0.5 % 5 MG/1 ML MPF 30ML VIAL ONE (11:52)
[2020-07-14] MEDS ORDERED: LIDOCAINE HCL 1% 20 ML VIAL ONE (11:52)
[2020-07-14] MEDS ORDERED: PROPOFOL IV EMULSION 10 MG/ML 20 ML VIAL IV ONE (11:55)
[2020-07-14] MEDS ORDERED: fentaNYL citrate 100 MCG/2 ML VIAL ONE (11:55)
[2020-07-14] MEDS ORDERED: MIDAZOLAM HCL 1 MG/ML 2ML VIAL ONE (11:55)
[2020-07-14] MEDS ORDERED: LIDOCAINE HCL 2% 2 ML VIAL/AMP(20MG/ML) INFIL ONE (11:55)
[2020-07-14] MEDS ORDERED: ONDANSETRON INJ 2 MG/ML 2 ML VIAL ONE (11:55)
[2020-07-14] MEDS ORDERED: GLYCOPYRROLATE 0.2 MG/ML VIAL ONE (11:55)
[2020-07-14] MEDS ORDERED: NEOSTIGMINE METHYLSULFATE 5 MG/5 ML SYR ONE (11:55)
[2020-07-14] MEDS ORDERED: DEXAMETHASONE SOD INJ 4 MG/ML VIAL ONE (11:55)
[2020-07-14] MEDS ORDERED: CEFAZOLIN 2000MG 2,000 MG/15 ML SYR IV ONE (11:57)
--- NOTE | 2020-07-14 11:57 | History & Physical Bridge Note ---
Date of Service July 14, 2020 History & Physical Bridge Note I have examined the patient, reviewed the History & Physical and in the interval since the performance of the History & Physical I have noted the following changes of clinical significance: no changes noted Supervising Physician Co-Signing Physician Notes Patient seen and examined, chart reviewed, case discussed with Dr. Galvez and I agree with his assessment and plan as documented above. Briefly, patient is a 29yo male with history of renal stones, ADHD presenting with acute cholecystitis. Patient states he takes Subutex 2mg daily as needed for opiate cravings. Medication not on PDMP or on medication fill list when discussed with Pharmacy. Will confirm again with patient On exam he is afebrile, HD stable, in mild distress secondary to discomfort Nontoxic in appearance HEENT - NC/AT, PERRL, EOMI, MMM, Neck supple Heart - +S1/S2, regular, no m/r/g Lungs - CTA Abd - +BS, soft, NT/ND Ext - No edema Labs and images reviewed. Elevated ABC=11.45, A=135 CT with gallstones with gallbladder wall edema. FIndings worrisome for acute lesia Surgery consulted and requesting admission to medical service -Admit to medical -Zosyn -Pain control -Will confirm patient's Subutex dose and prescriber -Remainder of plan as above
[2020-07-14] MEDS ORDERED: ePHEDrine sulfate 50 MG/ML AMP IV PRN (12:15)
[2020-07-14] MEDS ORDERED: ATROPINE SULFATE 0.1 MG/ML 10ML SYR IV PRN (12:15)
[2020-07-14] MEDS ORDERED: PROMETHAZINE HCL 6.25 MG in SODIUM CHLORIDE 0.9% 50 ML IV PRN (12:15)
[2020-07-14] MEDS ORDERED: ONDANSETRON INJ 2 MG/ML 2 ML VIAL IV PRN (12:15)
--- NOTE | 2020-07-14 12:15 | Anesthesiology Consultation ---
Date of Service July 14, 2020 Assessment & Plan (1) Encounter for pre-operative examination: Chart Review Chart Review: Acceptable Risk for Surgery and Patient NOT seen in Pre Admission Testing Consults Requested none ASA ASA2 Proposed Anesthesia Anesthesia Type: General Risk / Benefits Reviewed With: PT / POA / Parent / Guardian, Accepts Plan and Informed Consent Obtained History Surgery Operation Date: 07/14/20 11:40 Proposed Procedures p Laparoscopic Cholecystectomy - Rosanna Mclaughlin MD Height/Weight Height: 6 ft 2 in Weight: 91.8 kg Allergies Allergy/AdvReac Type Severity Reaction Status Date / Time No Known Allergies Allergy Verified 07/12/20 23:00 Medications Home Medications Medication Instructions Recorded Confirmed Last Taken buprenorphine HCl [Subutex] 2 mg SUBLINGUAL DAILY 07/12/20 07/12/20 Unknown dextroamphetamine 30 mg PO BID 07/12/20 07/12/20 Unknown gabapentin 200 mg PO QID 07/12/20 07/12/20 Unknown ibuprofen 600 mg PO Q6H PRN 07/12/20 07/12/20 Unknown Active Medications Generic Name Dose Route Start Last Admin Trade Name Freq PRN Reason Stop Dose Admin Buprenorphine HCl 2 mg 07/13/20 09:00 07/14/20 09:00 Buprenorphine Hcl 2 Mg Subl SL 08/12/20 08:59 Not Given DAILY NIKO Enoxaparin Sodium 40 mg 07/13/20 09:00 07/13/20 09:39 Enoxaparin Inj 40 Mg/0.4 Ml Syr SQ 08/12/20 08:59 Not Given QAM NIKO Gabapentin 200 mg 07/13/20 09:00 07/14/20 10:23 Gabapentin 100 Mg Cap PO 08/12/20 08:59 Not Given QID NIKO Sodium Chloride 1,000 mls @ 80 mls/hr 07/13/20 02:13 07/14/20 05:08 Nss 1000ml IV 08/12/20 02:12 80 mls/hr .[id number] NIKO Administration Piperacillin Sod/Tazobactam 115 mls @ 28.75 mls/hr 07/13/20 04:00 07/14/20 12:12 Sod 3.375 gm/ Dextrose IV 07/23/20 03:59 28 mls/hr Q8H NIKO Administration Protocol Miscellaneous 1 ea 07/13/20 02:45 07/14/20 10:23 Dextroamphetamine~Order Awaiting Action N/A 08/12/20 02:44 Not Given QS NIKO NPO Date Last Intake of Fluids: 07/12/20 Time Last Intake of Fluids: 20:00 Date Last Intake of Solids: 07/11/20 Time Last Intake of Solids: 18:00 Past Medical History Medical History Kidney stones Renal colic Exercise / Class Metabolic Activity II 4-5 Yardwork/Stairs/Walk up hill Past Anesthesia History No Hx of Anesthesia Complications and No Family Hx of Anesthesia Complications History of PONV No Hx of PONV and No Hx of Motion Sickness Social History Smoking Status: Current some day smoker tobacco type: e-cigarettes Do You Dip or Chew Tobacco: No Hx Alcohol Use: No Hx Substance Use: Yes substance use type: marijuana Physical Exam Vital Signs Last Vital Signs Temp 37 C 07/14/20 11:51 Pulse 86 07/14/20 11:51 Resp 20 07/14/20 11:51 BP 116/78 07/14/20 11:51 Pulse Ox 100 07/14/20 11:51 ENMT Mouth: no dentition abnormality Thyromental Distance: > or= 3.5 Finger Breadths Mallampati Class: II Neck normal visual inspection and + facial hair Respiratory normal respiratory effort Auscultation: lungs clear to auscultation bilaterally Cardiovascular Rate/Rhythm: regular rate and regular rhythm Psychiatric Orientation: alert Testing Laboratory Results 07/14/20 07:19 07/14/20 07:19 Urine Color Yellow 07/12/20 23:25 Urine Appearance Clear (Clear) 07/12/20 23:25 Urine pH 8.5 (4.5-7.5) H 07/12/20 23:25 Ur Specific [place] 1.024 (1.000-1.030) 07/12/20 23:25 Urine Protein Negative (Negative) 07/12/20 23:25 Urine Glucose (UA) Negative (Negative) 07/12/20 23:25 Urine Ketones Negative (Negative) 07/12/20 23:25 Urine Nitrite Negative (Negative) 07/12/20 23:25 Ur Leukocyte Esterase 1+ (Negative) H 07/12/20 23:25 Urine WBC (Auto) 10-30 /hpf (0-5) H 07/12/20 23:25 Urine RBC (Auto) 0-4 /hpf (0-4) 07/12/20 23:25 U Hyaline Cast (Auto) 1-5 /lpf (0-5) 07/12/20 23:25 U Epithel Cells (Auto) 10-20 /lpf (0-5) H 07/12/20 23:25 Urine Bacteria (Auto) Negative (Negative) 07/12/20 23:25 07/12/20 23:25 Urine Culture - Preliminary Urine,Clean Catch No growth - Less than 1,000 colonies/mL, Final report to follow.
[2020-07-14] MEDS ORDERED: ACETAMINOPHEN 1000 MG/100 ML IV IV ONE (13:10)
--- NOTE | 2020-07-14 14:02 | Post Operative Brief Note ---
Immediate Post Op Note v1 Date of Surgery July 14, 2020 Pre & Post Diagnosis Operation Date: 07/14/20 11:40 Pre-Op Diagnosis: Acute cholecystitis, cholelithiasis Post-Op Diagnosis: Acute cholecystitis, cholelithiasis I identified the patient and participated in the time-out.: Yes Procedure Operation Date: 07/14/20 11:40 Actual Procedures p Laparoscopic Cholecystectomy(Not Applicable) - Rosanna Mclaughlin MD Surgeon Rosanna Mclaughlin MD Oncology Radiation Physician surgical coder Estimated Blood Loss 10 Findings Consistent with Post-Op Diagnosis significant inflammation on gallbladder wall, edema, thickening, gallstones Fluids 1400ml Specimens gallbladder Anesthesia Type General Complications none Disposition Accompanied Patient To Recovery: Yes Disposition: Recovery Room Overlapping Procedure I was immediately available: during the entire case.
--- NOTE | 2020-07-14 14:29 | Anesthesiology Progress Note ---
Date of Service July 14, 2020 Anesthesia Post Procedure Vital Signs Vital Signs: Temp Pulse Resp BP Pulse Ox 07/14/20 14:20 77 20 112/64 100 07/14/20 14:13 36.3 C L 81 20 102/59 L 100 07/14/20 11:51 37 C 86 20 116/78 100 07/14/20 07:34 36.7 C 88 20 121/72 97 07/13/20 23:26 36.9 C 89 19 118/76 98 07/13/20 15:45 37 C 83 18 114/72 99 Pain Intensity Abdomen: Pain Intensity: 3 Transfer of Care Handoff Completed per policy Notes Mental Status: alert / awake / arousable Patient Amnestic to Procedure: Yes Nausea / Vomiting: adequately controlled Pain: adequately controlled Airway Patency, RR, SpO2: stable & adequate BP & HR: stable & adequate Hydration State: stable & adequate Anesthetic Complications: no major complications apparent
[2020-07-14] MEDS: fentaNYL citrate 100 MCG/2 ML VIAL IV PRN ×2 (15:08→15:13)
[2020-07-14] MEDS: MoRPHine SULFATE 2 MG/ML CARP IV PRN (15:44)
[2020-07-14] MEDS ORDERED: HYDROmorphone INJ 1 MG/ML SYRINGE IV STA (16:13)
[2020-07-14] MEDS ORDERED: HYDROmorphone INJ 1 MG/ML SYRINGE ONE (16:16)
[2020-07-14] MEDS: IBUPROFEN 600 MG TAB PO PRN (17:32)
--- NOTE | 2020-07-14 20:59 | Operative Report (OR) ---
DATE OF OPERATION: 07/14/2020 PREOPERATIVE DIAGNOSES: Acute cholecystitis and cholelithiasis. POSTOPERATIVE DIAGNOSES: Acute cholecystitis and cholelithiasis. OPERATION: Laparoscopic cholecystectomy. SURGEON: Rosanna Mclaughlin MD. ANESTHESIA: General. ESTIMATED BLOOD LOSS: About 10 mL. FINDINGS: Acute cholecystitis with significant inflammation on the gallbladder wall, gallbladder wall thickening, edema with multiple gallstones. COMPLICATIONS: None. INDICATIONS FOR THE PROCEDURE: This is a 29-year-old gentleman who was admitted to the hospital for acute cholecystitis and I recommended to do the laparoscopic cholecystectomy, possible open, possible cholangiogram. I did talk to the patient about the benefit, risk, alternate procedure. I indicated the risks may include but not limited to such as bleeding, infection, injury to common bile duct, injury to other organs, incisional hernia, may need ERCP. The patient understands. He signed informed consent and I answered all questions. DETAILS OF PROCEDURE: We brought the patient to the OR, put the patient in the supine position. The patient received SCD on bilateral legs to prevent DVT. Also, patient received 3.375 grams of Zosyn IV for prophylactic antibiotic. The patient received general anesthesia without difficulties. The abdomen was prepped and draped in routine sterile fashion. After timeout, I injected local anesthesia by using 1% lidocaine mixed with 0.5% Marcaine just above the umbilicus. Then I made a small incision just above the umbilicus, opened fascia and opened peritoneum under direct vision, put a Sharda trocar in, connected to CO2 to create pneumoperitoneum, flow rate at 6 liters per minute, pressure not more than 14 mmHg. Once we got a nice pneumoperitoneum, we put the camera in, looked around the abdomen, shows normal finding on the liver. However, the gallbladder showed significant inflammation, distention with gallbladder wall thickening, edema, confirmed the diagnosis of acute cholecystitis. Then, we put another three 5 mm trocars on the right upper quadrant. Once all trocars in, we used a grasper to hold the base of gallbladder, put in the direction to the diaphragm, another grasper to hold the pouch of gallbladder, put a lateral to expose the triangle of Calot. Cystic duct was identified and mobilized. I put two 5 mm metal clips on the proximal cystic duct, one on the distal cystic duct. I then used a scissor for transection of cystic duct. Rechecked and no bile leak. The cystic artery was identified and mobilized. I put two 5 mm metal clips on the proximal cystic artery, one on the distal cystic artery and used a scissor for transection of cystic artery. Rechecked, no active bleeding. Then we used the Bovie to take down gallbladder from the liver bed. Rechecked and no active bleeding, no bile leak from the liver bed. Then we removed gallbladder through the catch bag. Then we reinserted Sharda trocar in, connected to CO2 to create pneumoperitoneum again, looked around the abdomen, no active bleeding, no bile leak from the liver bed. Then, we removed all trocars under direct vision. No active bleeding from the trocar sites. Pneumoperitoneum was released, now closed the umbilical incision, fascial layer by using 0 Vicryl [id number] x2, closed subcutaneous layer by using 2-0 Vicryl interruptedly, closed skin by using 4-0 Vicryl continuous running, closed another three 5 mm trocar site skin only by using 4-0 Vicryl. Then, we put the dressing on. The patient tolerated the procedure well. All instrument, needle and sponge count were correct x2 at the end of the case. The patient was transferred to recovery room in stable condition. The specimen was sent to pathology. I attest to the content of the Intraoperative Record and any orders documented therein. Any exception s are noted below.
[2020-07-15] MEDS: [UNRECOGNIZED DRUG - OTHER] SCH ×2 (01:27→07:34)
[2020-07-15] MEDS: SODIUM CHLORIDE 0.9% 1000ML 1,000 ML IV SCH (04:49)
[2020-07-15] MEDS: PIPERACILLIN/TAZOBACTAM 3.375 GM in DEXTROSE 5% 100 ML IV SCH ×2 (04:50→13:41)
[2020-07-15] MEDS: MoRPHine SULFATE 2 MG/ML CARP IV PRN (06:37)
[2020-07-15] MEDS: IBUPROFEN 600 MG TAB PO PRN (07:33)
[2020-07-15] MEDS ORDERED: HYDROCODONE/ACETAMOPHEN 5/325MG TAB PO PRN (09:35)
[2020-07-15] MEDS: GABAPENTIN 100 MG CAP PO SCH ×2 (09:46→14:09)
[2020-07-15] MEDS: buprenorphine HCL 2 MG SUBL SL SCH (09:47)
[2020-07-15] MEDS: ENOXAPARIN INJ 40 MG/0.4 ML SYR SQ SCH (10:44)
[2020-07-15 11:26] LABS: Hematocrit (blood only) 36.2 % (42-52); Hemoglobin 11.7 g/dL (14.0-18.0); Mean Corpuscular Hemoglobin 27.3 pg (25-34); Mean Corpuscular Hgb Conc 32.3 g/dL (32-36); Mean Corpuscular Volume 84.6 fL (80-100); Mean Platelet Volume 9.6 fL (7.4-10.4); Platelet Count 283 K/uL (130-400); RDW Standard Deviation 39.9 fL (36.4-46.3); Red Blood Count 4.28 M/uL (4.7-6.1); White Blood Count 12.87 K/uL (4.8-10.8)
[2020-07-15 11:51] LABS: Albumin Level 2.6 gm/dl (3.4-5.0); Calcium 8.5 mg/dl (8.5-10.1); Creatinine Clr Calc Pharmacy 146.4 ml/min; Est GFR (African American) 134.6; Est GFR (Non-African American) 116.1; Potassium 3.4 mmol/L (3.5-5.1)
[2020-07-15 11:54] LABS: Albumin Globulin Ratio 0.8 (0.9-2); Bilirubin,Total 0.3 mg/dl (0.2-1); Globulin 3.4 gm/dl (2.5-4.0)
--- NOTE | 2020-07-15 13:14 | Discharge Summary ---
Date of Service July 15, 2020 Admission HPI Per Admitting Provider 29-year-old male with past medical history ADHD, Tourette's presents with concerns of epigastric abdominal pain that has been ongoing for the past 2 to 3 weeks. Usually pain goes away on its own, however today pain was unrelenting and did not subside so patient presented to ED. Described as sharp intermittent, nonradiating, 10 out of 10 on severity scale. Patient notes pain is alleviated by taking prescribed Suboxone and gabapentin. No known exacerbating factors. Patient has never had abdominal pain like this ever before. Patient denies any fevers, chills, sweats, nausea, vomiting, diarrhea, black or tarry stools, chest pain, shortness of breath, palpitations, edema, decreased appetite or ingestion of suspicious foods, known sick contacts or recent travel anywhere. Patient with no other acute concerns or complaints. Pertinent labs: WBC 11.45, alk phos 135, LFTs WNL, lipase WNL, largely unremarkable CBC CMP Chest x-ray: No acute process per interpretation Abdomen pelvis CT ([facility]): Gallstones within the gallbladder with gallbladder wall edema. The findings are worrisome for acute cholecystitis. No other acute findings. ER course: IV diphenhydramine 25 mg, IV famotidine 20 mg, IV Dilaudid 1 mg, IV Toradol 15 mg, IV morphine 4 mg, IV Zofran 4 mg, IV Zosyn 4.5 g Abdominal surgical history: None Principal Diagnosis cholecystitis Discharge Exam Constitutional WD/WN, vitals as above Respiratory normal respiratory effort, lungs clear to auscultation Cardiovascular RRR, no murmur, no edema Gastrointestinal (Abdomen) Inspection/Auscultation: abdomen normal to inspection and normal bowel sounds; abdomen not distended Percussion/Palpation: abdomen soft; abdomen nontender Musculoskeletal no cyanosis or clubbing, extremities motor strength 5/5 Skin no rashes, warm and dry Neurologic moves all extremities and awake Psychiatric A+Ox3, euthymic affect Discharge Data Allergies Allergy/AdvReac Type Severity Reaction Status Date / Time No Known Allergies Allergy Verified 07/12/20 23:00 Consultations 07/12/20 23:54 ED Decision to Admit Stat 07/13/20 02:13 Consult General Surgery Routine Procedures Performed Operation Date: 07/14/20 11:40 Actual Procedures p Laparoscopic Cholecystectomy(Not Applicable) - Rosanna Mclaughlin MD Ordered Studies 07/12/20 22:00 CT abd pelvis IV con only Urgent 07/13/20 10:09 US abdomen limited Routine Hospital Course (1) Acute cholecystitis: s/p cholecystectomy 07/[address] Mclaughlin Patient is very adamant he be discharged today. Labs are overall stable, vss. Surgery ok with discharge and will follow up with him in 2 weeks. Augmentin for 5 more days Pain control (2) Cholelithiasis: As seen on CT (3) Opiate dependence: Secondary to oxycodone dependence for diagnosis of kidney stones 4 months ago Continue Subutex 2 mg SL daily. Patient notes that he does not take this every day, just as needed (4) Tourette disease: Continue gabapentin 200 mg 4 times daily (5) ADHD: hold dextroamphetamine 30 mg while hospitalized (6) Anemia: Likely mostly dilutional with some blood loss from surgery. follow up with pcp. No s/s of bleeding Total Time Total Time Spent Total Time Spent (In Minutes): greater than 30 minutes Discharge Plan Discharge Items Patient Disposition: Home - Self-Care Reason For Visit: CHOLEY Discharge Diagnosis: Cholecystitis, s/p cholecystectomy Condition on Discharge: Fair Activity: Per Instructions section Activity Comment: gradually resume your activity Lifting: No more than 25 pounds Lifting Comment: for 4 weeks Bathing: May shower/bathe in 3 days Sexual Activity: After two weeks Exercise/Sports: Rest today Driving/Machine Use: no driving while taking pain medicine Non-emergency contact: Primary Care Provider and Surgeon Call non-emergency contact if: you have any medication questions, your symptoms worsen and you have a fever Follow-up/Referrals: Nadia Hicks MD [Primary Care Provider] - Rosanna Mclaughlin MD [Physician] - (2 weeks) Dietitian Info: follow up Dr. Mclaughlin 2 weeks, Diet: Regular Diet Comment: advance your diet slowly as tolerated Addtl Attending Provider Instructions: Medications: - AUGMENTIN: take twice a day for 5 days for cholecystitis - NORCO: take one tablet every 4 hours as needed for pain, see below Cholecystitis, s/p cholecystectomy advance diet as tolerated, avoid fatty/greasy foods for next few weeks finish course of Augmentin for pain, recommend taking Ibuprofen 600mg every 6 hours as needed, Tylenol 650mg every 6 hours as needed if you still have pain, take one [place] as needed every 4 hours pain should improve in next few days follow up with Dr. Mclaughlin in two weeks Pending Studies at Discharge: No Studies:: gallbladder pathology report Stand-Alone Forms: My [facility], Opioid Pain Management, Work/School Release (Inpt), Smoking Cessation Medications and DC Order Prescriptions: New hydrocodone-acetaminophen [[place]] 5-325 mg Tablet 1 tab PO Q4H PRN (Reason: pain) Qty: 10 RF: 0 amoxicillin-pot clavulanate [Augmentin] 875-125 mg tablet 1 tab PO BID Qty: 10 RF: 0 Continued dextroamphetamine 10 mg tablet 30 mg PO BID RF: 0 ibuprofen 200 mg Tablet 600 mg PO Q6H PRN (Reason: Pain) RF: 0 gabapentin 100 mg capsule 200 mg PO QID RF: 0 buprenorphine HCl 2 mg Tablet, Sublingual 2 mg SUBLINGUAL DAILY RF: 0 Discharge Orders: Discharge Order (Routine); Ordered 07/15/20 Ordered By: Edison Bangura/Other Patient Handouts: DVT Post Op Prevention Admission Data Admit Date/Time: 07/13/20 01:05 Attending Provider: Edison Plunkett Admit Provider: Daniel Galvez Primary Care Provider: Nadia Hicks Other Providers: Norma Reveles ; Rosanna Mclaughlin Other Interventions: Discharge Summary Assessment (RN) Last Done: 07/15/20 13:35 Supervising Physician Co-Signing Physician Notes Patient seen and examined on the day of discharge. I agree with the discharge summary by Chikis FAN. I have reviewed the chart including labs, imaging and plans for discharge. patient is doing well, pain is controlled, eating well, no nausea, cleared for discharge by surgery - Acute cholecystitis, now s/p lap lesia discharge to home with pain control, post op instructions provided by surgery he knows to follow up with Dr. Mclaughlin in 1-2 weeks will give him excuse for work complete 5 more days of antibiotics Coding Level of Care Code D/C Day Management >30 mins Diagnoses Acute cholecystitis K81.0 Cholelithiasis K80.20 Opiate dependence F11.20 Tourette disease F95.2 ADHD F90.9 Anemia D64.9
--- NOTE | 2020-07-15 13:16 | Surgery Progress Note ---
Date of Service doing fine, no significant abdominal pain,. no nausea, no vomiting, no fever, July 15, 2020 Assessment & Plan (1) RUQ abdominal pain: (2) Acute cholecystitis: pt is a 29 amez9umy male who was admitted to [facility] for acute cholecystitis, IMP: acute cholecystitis, cholelithiasis, Plan, I recommend to do laparoscopic cholecystectomy , possible open or cholangiogram tomorrow, D/W benefits, risks and alternatives of the surgery, the risks - infection, bleeding, injury CBD, may need ERCP, pt understood, he agrees with the surgery, I answered all questions, U/S study for gallbladder, NPO after MN, clear diet now, 07/14/2020 1:15PM, doing fine, pt can be discharged home today, mauri post=op care instruction was given, F/U 2 weeks, (3) Cholelithiasis: Admission and Anticipated Discharge Date Admission Date: July 13, 2020 Supervising Physician Co-Signing Physician Notes Patient seen and examined, chart reviewed, case discussed with Dr. Galvez and I agree with his assessment and plan as documented above. Briefly, patient is a 29yo male with history of renal stones, ADHD presenting with acute cholecystitis. Patient states he takes Subutex 2mg daily as needed for opiate cravings. Medication not on PDMP or on medication fill list when discussed with Pharmacy. Will confirm again with patient On exam he is afebrile, HD stable, in mild distress secondary to discomfort Nontoxic in appearance HEENT - NC/AT, PERRL, EOMI, MMM, Neck supple Heart - +S1/S2, regular, no m/r/g Lungs - CTA Abd - +BS, soft, NT/ND Ext - No edema Labs and images reviewed. Elevated ABC=11.45, A=135 CT with gallstones with gallbladder wall edema. FIndings worrisome for acute lesia Surgery consulted and requesting admission to medical service -Admit to medical -Zosyn -Pain control -Will confirm patient's Subutex dose and prescriber -Remainder of plan as above Subjective ROS Constitutional: no chills, aches, sweats or fever Respiratory: no sob,cough, sputum, or wheezing Cardiac: no chest pain, palpitations, edema, orthopnea or lightheadedness GI: no abdominal pain, nausea, vomiting, diarrhea or constipation : no dysuria or hesitancy Extremities: no joint pain or weakness Skin: no rash All other systems reviewed and negative Physical Exam Constitutional: WD/WN, vitals as above well developed and well nourished Eyes: PERRL, conjunctivae normal, anicteric sclerae ENMT: external ear and nose normal, oropharynx normal Neck: trachea midline, no thyromegaly Respiratory: normal respiratory effort, lungs clear to auscultation normal respiratory effort Cardiovascular: RRR, no murmur, no edema Rate/Rhythm: regular rate and regular rhythm Heart Sounds: normal S1 and normal S2 Gastrointestinal (Abdomen): Percussion/Palpation: abdomen soft mild incision tenderness, all incisions intact, no redness, Musculoskeletal: no cyanosis or clubbing, extremities motor strength 5/5 Skin: no rashes, warm and dry Neurologic: patellar DTR's 2+ bilat, sensation intact Psychiatric: Orientation: alert and oriented x 3 Results & Data ([facility]) Vital Signs (Past 12 Hours) Vital Signs Temp Pulse Resp BP Pulse Ox 07/15/20 07:36 36.9 C 95 H 16 132/87 93
[2020-07-15] MEDS ORDERED: POTASSIUM CHLORIDE 20 MEQ TABCR PO ONE (13:30)
[2020-07-16 12:22] LABS: Amphetamine Urine, Confirm 3720 ng/mL (<250); Codeine Urine NEGATIVE ng/mL (<50); Hydrocodone Urine NEGATIVE ng/mL (<50); Hydromor Urine NEGATIVE ng/mL (<50); MDA negative; MDEA negative; MDMA (Ecstasy) Urine, Confirm negative; Methamphetamine, Ur Confirm >15000 ng/mL (<250); Morphine Urine 1680 ng/mL (<50); Norhydrocodone Conf Ur NEGATIVE ng/mL (<50); Noroxycodone Urine NEGATIVE ng/mL (<50); Oxycodone Urine NEGATIVE ng/mL (<50); Oxymorph Urine NEGATIVE ng/mL (<50)
== END 2020-07-15 14:30 | disposition home or self-care (01) ==
LOC: 3N 21:39 → ED 21:39 → SUATTDRO 07-13 01:05 → 3N 07-13 01:38

== ENCOUNTER 2022-12-19 04:37 | Inpatient (IN) ==
[2022-12-19 05:27] LABS: Basophils # (auto) 0.04 K/uL (0-0.2); Basophils % (auto) 0.6 %; Eosinophils # (auto) 0.08 K/uL (0-0.50); Eosinophils % (auto) 1.3 %; Hemoglobin 14.8 g/dl (14.0-18.0); Immature Granulocytes # (auto) 0.03 K/uL (0.01-0.20); Immature Granulocytes % (auto) 0.5 %; Lymphocytes # (auto) 1.68 K/uL (1.2-3.4); Lymphocytes % (auto) 26.6 %; Mean Corpuscular Hemoglobin 28.2 pg (25.0-34.0); Mean Corpuscular Hgb Conc 33.6 g/dL (32.0-36.0); Mean Corpuscular Volume 83.8 fL (80.0-100.0); Mean Platelet Volume 9.8 fL (9.4-12.4); Monocytes # (auto) 0.61 K/uL (0.11-0.59); Monocytes % (auto) 9.7 %; Neutrophils # (auto) 3.88 K/uL (1.40-6.50); Neutrophils % (auto) 61.3 %; Platelet Count 305 K/uL (130-400); RDW Coefficient of Variation 12.6 % (11.5-14.5); RDW Standard Deviation 38.1 fL (36.4-46.3); Red Blood Count 5.25 M/uL (4.70-6.10); White Blood Count 6.32 K/ul (4.8-10.8)
[2022-12-19 05:28] LABS: Acetaminophen < 3 ug/ml (10-30); Albumin Globulin Ratio 1.1 (0.9-2); Albumin Level 4.4 gm/dl (3.4-5.0); Bilirubin,Total 0.4 mg/dl (0.2-1.0); Calcium 9.4 mg/dl (8.5-10.1); Creatinine Clr Calc Pharmacy 104.2 ml/min; Est GFR (African American) 97.4 ml/min; Potassium 3.1 mmol/L (3.5-5.1); Salicylate < 3.0 mg/dl (3.0-30); Total Protein 8.4 gm/dl (6.0-8.3)
--- NOTE | 2022-12-19 05:47 | Emergency Department Note ---
Impression & Plan Mental health impairment, Involuntary commitment ED Provider Note Name: SOLEDAD LINCOLN Age: 31 Sex: M Arrives Via: Walk-In Informant: Patient, case management, nursing staff, 302 petition ED Provider: Dieter Perez MD Chief Complaint: Mental health evaluation Impression: As per impressions above Medical Decision Makin-year-old gentleman arrives on a 302 petition for mental health crisis. Patient denies any risk of harm to himself or others. That said 302 petition clearly states there is a concern for his mental health and the risk that he may kill himself. When discussing with patient he very much comes across as withholding information is giving odd answers for why he would have said things and emails and furthermore is withholding regarding recent events. He is medically clear. By as far as I can tell his me no active furtherance to harm himself I do feel that given his mother has filed a 302 petition stating that the patient is at risk to himself and the patient does not seem to understand the severity of the situation that I cannot decline the 302 and thus it was upheld and I signed a warrant. This was done in conjunction with case manag emreno who is also evaluating the patient and agreed that patient appears to be withholding information about what is actually going on. Per my review of chart I do not see any clear previous mental health evaluations at this facility though when discussing with patient he is a bit hesitant to discuss mental health issues. Prior Medical Record and Triage/Nursing Notes reviewed by Me External chart review including 302 petition performed by me Differentials:Mood disorder, infection, hypoglycemia, electrolyte abnormalities, toxicologic, neurologic, as well as other pathologies. Vital Signs: reviewed and remarkable for mildly tachycardic on arrival Labs:Reviewed and remarkable for no significant abnormalities Consults:Mental health case management. They evaluated patient and agreed that patient does not seem to be fully truthful about events and feel that proceeding with 302 warrant is indicated. Plan: Disposition: Signed out to Dr. Escobar pending placement Condition: Good History of Present Illness:31-year-old gentleman arrives for evaluation of mental health crisis. Patient reportedly has been having some issues with friend who recently moved out of his house, financial issues as well as some other stressors with family. Over the last 2 days he has been sending emails to his parents stating he needs money. Mother feels that he is an acute risk to himself and thus filed a 302 petition. Petition states patient stated he was going to and it was again to be blamed on her. She feels that this was a threat that he was going to kill himself. She also feels that he has been eating cat food and not caring for himself. Patient denies any of this stating that the reason he put that in the email was that he needed money for food and they were giving it to him. He states he was not can to harm himself or kill himself. He denies that he was actually eating the cat food but rather is bringing cat food over to his parents house where his cat was. Patient denies any alcohol use. He does admit to marijuana and Suboxone use periodically. 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 Past History:ADHD, Tourette's, opioid dependence Home Medications:Not taking any daily medications Allergies:No known drug allergies Vitals:Blood Pressure: 156/110, Pulse 119, RR 20, T 36.6C, O2 98% on RA Physical Exam: GENERAL: Patient is unkempt appearing and in minimal distress. Mildly anxious and upset that he is in the ER on a 302 petition EYES: No scleral icterus, unremarkable pupils. RESPIRATORY: No dyspnea. Clear to auscultation and equal bilaterally. No wheeze, no rhonchi. CARDIOVASCULAR: Regular rate and rhythm.No murmurs, rubs, gallops appreciated. EXTREMITIES: Normal motion all extremities, no cyanosis, no edema. NEUROLOGIC: Alert and oriented, no acute motor or sensory deficits, no focal weakness, cranial nerves grossly intact. SKIN: No rash, no jaundice, no diaphoresis. PSYCH: Mildly odd affect in mild distress somewhat anxious that he is here. He denies suicidal homicidal ideation. He denies depression. GCS: 15 ED Course: Times/Reassessments: Patient stable no distress breathing comfortably Dieter Perez MD Past Med/Surg History Medical History (Updated 12/19/22 @ 07:01 by Dieter Perez MD) Acute cholecystitis Cholelithiasis Kidney stones Renal colic Social History Smoking Status: Never smoker Tobacco Type: E-cigarettes / Vaping Second Hand Exposure: No; Hx Alcohol Use: No Hx Substance Use: Yes Preferred Language: Slovenian Communication Ability: Effective Master Barber Required: No Beliefs That Will Affect Care: None Current Living Situation: Alone Feels Safe at Home: Yes Gender Identity: Male Assistive Devices: None Allergies Allergies Allergy/AdvReac Type Severity Reaction Status Date / Time No Known Allergies Allergy Verified 12/19/22 05:03 Home Meds Home Medications Medication Instructions Recorded Confirmed buprenorphine HCl 2 mg sublingual 8 mg sublingual DIRECTED PRN 07/12/20 12/19/22 tablet "when I need it" dextroamphetamine sulfate 10 mg 60 mg PO DAILY 07/12/20 12/19/22 tablet ibuprofen 200 mg tablet 600 mg PO Q6H PRN Pain 07/12/20 12/19/22 Results & Data (ED) Vital Signs Vital Signs - 24 hr 12/19/22 04:49 Temperature 36.6 C Temperature Source Temporal Artery Scan Pulse Rate 119 H Pulse Rhythm Regular Pulse Strength Normal Respiratory Rate 20 Respiratory Effort / Characteristics Non-Labored Spontaneous Respiratory Depth Normal Blood Pressure 156/110 H Blood Pressure Mean 125 Pulse Oximetry 98 Oxygen Delivery Method Room Air Sepsis Recent Fever Within 48 Hours No Sepsis New/Unexplained Change in Mental Status No Sepsis Action Taken by Nursing No Action Required Laboratory Data 12/19/22 04:45 12/19/22 04:45 Lab Results 12/19/22 12/19/22 12/19/22 Range/Units 04:45 04:45 04:45 WBC 6.32 (4.8-10.8) K/ul RBC 5.25 (4.70-6.10) M/uL Hgb 14.8 (14.0-18.0) g/dl Hct 44.0 (42.0-52.0) % MCV 83.8 (80.0-100.0) fL MCH 28.2 (25.0-34.0) pg MCHC 33.6 (32.0-36.0) g/dL RDW Std Deviation 38.1 (36.4-46.3) fL RDW Coeff of Stevan 12.6 (11.5-14.5) % Plt Count 305 (130-400) K/uL MPV 9.8 (9.4-12.4) fL Immature Gran % (Auto) 0.5 % Neut % (Auto) 61.3 % Lymph % (Auto) 26.6 % Bucks % (Auto) 9.7 % Eos % (Auto) 1.3 % Baso % (Auto) 0.6 % Neut # (Auto) 3.88 (1.40-6.50) K/uL Lymph # (Auto) 1.68 (1.2-3.4) K/uL Bucks # (Auto) 0.61 H (0.11-0.59) K/uL Eos # (Auto) 0.08 (0-0.50) K/uL Baso # (Auto) 0.04 (0-0.2) K/uL Immature Gran # (Auto) 0.03 (0.01-0.20) K/uL Sodium 141 (136-145) mmol/L Potassium 3.1 L (3.5-5.1) mmol/L Chloride 103 (98-107) mmol/L Carbon Dioxide 31 (21-32) mmol/L Anion Gap 7 (3-11) BUN 8 (6-23) mg/dl Creatinine 1.14 (0.6-1.4) mg/dl Est Cr Clr Drug Dosing 104.2 ml/min Est GFR ( Amer) 97.4 ml/min Est GFR (Non-Af Amer) 84.0 ml/min BUN/Creatinine Ratio 7.0 L (10-20) Glucose 118 H (70-99(Fasting)) mg/dl Calcium 9.4 (8.5-10.1) mg/dl Total Bilirubin 0.4 (0.2-1.0) mg/dl AST 27 (13-39) U/L ALT 48 (7-52) U/L Alkaline Phosphatase 148 H (34-104) U/L Total Protein 8.4 H (6.0-8.3) gm/dl Albumin 4.4 (3.4-5.0) gm/dl Globulin 4.0 (2.5-4.0) gm/dl Albumin/Globulin Ratio 1.1 (0.9-2) TSH 1.325 (0.300-4.500) uIu/ml Urine Color Urine Appearance (Clear) Urine pH (4.5-7.5) Ur Specific [place] (1.000-1.030) Urine Protein (Negative) Urine Glucose (UA) (Negative) Urine Ketones (Negative) Urine Blood (Negative) Urine Nitrite (Negative) Urine Bilirubin (Negative) Urine Urobilinogen (Negative) Ur Leukocyte Esterase (Negative) Salicylates (3.0-30) mg/dl Urine Opiates Screen (Neg) Ur Methadone, Qual (Neg) Acetaminophen (10-30) ug/ml Urine Barbiturates (Neg) Ur Phencyclidine (PCP) (Neg) U Amphetamin/Meth Scrn (Neg) MDMA (Ecstasy) Screen (Neg) U Benzodiazepines Scrn (Neg) Ur Cocaine Metabolite (Neg) U Marijuana (THC) Screen (Neg) Ethyl Alcohol mg/dL (<10.0) mg/dl SARS-CoV-2, RNA, NAAT (NEGATIVE) 12/19/22 12/19/22 12/19/22 Range/Units 04:45 04:45 04:45 WBC (4.8-10.8) K/ul RBC (4.70-6.10) M/uL Hgb (14.0-18.0) g/dl Hct (42.0-52.0) % MCV (80.0-100.0) fL MCH (25.0-34.0) pg MCHC (32.0-36.0) g/dL RDW Std Deviation (36.4-46.3) fL RDW Coeff of Stevan (11.5-14.5) % Plt Count (130-400) K/uL MPV (9.4-12.4) fL Immature Gran % (Auto) % Neut % (Auto) % Lymph % (Auto) % Bucks % (Auto) % Eos % (Auto) % Baso % (Auto) % Neut # (Auto) (1.40-6.50) K/uL Lymph # (Auto) (1.2-3.4) K/uL Bucks # (Auto) (0.11-0.59) K/uL Eos # (Auto) (0-0.50) K/uL Baso # (Auto) (0-0.2) K/uL Immature Gran # (Auto) (0.01-0.20) K/uL Sodium (136-145) mmol/L Potassium (3.5-5.1) mmol/L Chloride (98-107) mmol/L Carbon Dioxide (21-32) mmol/L Anion Gap (3-11) BUN (6-23) mg/dl Creatinine (0.6-1.4) mg/dl Est Cr Clr Drug Dosing ml/min Est GFR ( Amer) ml/min Est GFR (Non-Af Amer) ml/min BUN/Creatinine Ratio (10-20) Glucose (70-99(Fasting)) mg/dl Calcium (8.5-10.1) mg/dl Total Bilirubin (0.2-1.0) mg/dl AST (13-39) U/L ALT (7-52) U/L Alkaline Phosphatase (34-104) U/L Total Protein (6.0-8.3) gm/dl Albumin (3.4-5.0) gm/dl Globulin (2.5-4.0) gm/dl Albumin/Globulin Ratio (0.9-2) TSH (0.300-4.500) uIu/ml Urine Color Urine Appearance (Clear) Urine pH (4.5-7.5) Ur Specific [place] (1.000-1.030) Urine Protein (Negative) Urine Glucose (UA) (Negative) Urine Ketones (Negative) Urine Blood (Negative) Urine Nitrite (Negative) Urine Bilirubin (Negative) Urine Urobilinogen (Negative) Ur Leukocyte Esterase (Negative) Salicylates < 3.0 L (3.0-30) mg/dl Urine Opiates Screen (Neg) Ur Methadone, Qual (Neg) Acetaminophen < 3 L (10-30) ug/ml Urine Barbiturates (Neg) Ur Phencyclidine (PCP) (Neg) U Amphetamin/Meth Scrn (Neg) MDMA (Ecstasy) Screen (Neg) U Benzodiazepines Scrn (Neg) Ur Cocaine Metabolite (Neg) U Marijuana (THC) Screen (Neg) Ethyl Alcohol mg/dL < 10.0 (<10.0) mg/dl SARS-CoV-2, RNA, NAAT NEGATIVE (NEGATIVE) 12/19/22 12/19/22 Range/Units 05:38 05:38 WBC (4.8-10.8) K/ul RBC (4.70-6.10) M/uL Hgb (14.0-18.0) g/dl Hct (42.0-52.0) % MCV (80.0-100.0) fL MCH (25.0-34.0) pg MCHC (32.0-36.0) g/dL RDW Std Deviation (36.4-46.3) fL RDW Coeff of Stevan (11.5-14.5) % Plt Count (130-400) K/uL MPV (9.4-12.4) fL Immature Gran % (Auto) % Neut % (Auto) % Lymph % (Auto) % Bucks % (Auto) % Eos % (Auto) % Baso % (Auto) % Neut # (Auto) (1.40-6.50) K/uL Lymph # (Auto) (1.2-3.4) K/uL Bucks # (Auto) (0.11-0.59) K/uL Eos # (Auto) (0-0.50) K/uL Baso # (Auto) (0-0.2) K/uL Immature Gran # (Auto) (0.01-0.20) K/uL Sodium (136-145) mmol/L Potassium (3.5-5.1) mmol/L Chloride (98-107) mmol/L Carbon Dioxide (21-32) mmol/L Anion Gap (3-11) BUN (6-23) mg/dl Creatinine (0.6-1.4) mg/dl Est Cr Clr Drug Dosing ml/min Est GFR ( Amer) ml/min Est GFR (Non-Af Amer) ml/min BUN/Creatinine Ratio (10-20) Glucose (70-99(Fasting)) mg/dl Calcium (8.5-10.1) mg/dl Total Bilirubin (0.2-1.0) mg/dl AST (13-39) U/L ALT (7-52) U/L Alkaline Phosphatase (34-104) U/L Total Protein (6.0-8.3) gm/dl Albumin (3.4-5.0) gm/dl Globulin (2.5-4.0) gm/dl Albumin/Globulin Ratio (0.9-2) TSH (0.300-4.500) uIu/ml Urine Color Yellow Urine Appearance Clear (Clear) Urine pH 6.5 (4.5-7.5) Ur Specific [place] 1.008 (1.000-1.030) Urine Protein Negative (Negative) Urine Glucose (UA) Negative (Negative) Urine Ketones Negative (Negative) Urine Blood Negative (Negative) Urine Nitrite Negative (Negative) Urine Bilirubin Negative (Negative) Urine Urobilinogen Negative (Negative) Ur Leukocyte Esterase Negative (Negative) Salicylates (3.0-30) mg/dl Urine Opiates Screen Neg (Neg) Ur Methadone, Qual Neg (Neg) Acetaminophen (10-30) ug/ml Urine Barbiturates Neg (Neg) Ur Phencyclidine (PCP) Neg (Neg) U Amphetamin/Meth Scrn Pos H (Neg) MDMA (Ecstasy) Screen Pos H (Neg) U Benzodiazepines Scrn Neg (Neg) Ur Cocaine Metabolite Neg (Neg) U Marijuana (THC) Screen Neg (Neg) Ethyl Alcohol mg/dL (<10.0) mg/dl SARS-CoV-2, RNA, NAAT (NEGATIVE) Discharge Plan Visit Data Chief Complaint: Mental Health Evaluation Stated Complaint: 302 ED Provider: Brandon Escobar Discharge Problem: Mental health impairment, Involuntary commitment Forms Stand Alone Forms: My [facility], Suicide Prevention Resources Prescriptions Prescriptions: No Action dextroamphetamine sulfate 10 mg tablet 60 mg PO DAILY ibuprofen 200 mg Tablet 600 mg PO Q6H PRN (Reason: Pain) buprenorphine HCl 2 mg Tablet, Sublingual 8 mg SUBLINGUAL DIRECTED PRN (Reason: "when I need it" ) Referrals Referrals: Nadia Hicks MD [Primary Care Provider] -
[2022-12-19 06:40] LABS: Appearance Urine Clear (Clear); Bilirubin Urine Negative (Negative); Blood Urine Negative (Negative); Color Urine Yellow; Glucose Urine UA Negative (Negative); Ketones Urine Negative (Negative); Leukocyte Esterase Urine Negative (Negative); Nitrite Urine Negative (Negative); Protein Urine Negative (Negative); Specific Gravity Urine 1.008 (1.000-1.030); Urobilinogen Urine Negative (Negative); pH Urine 6.5 (4.5-7.5)
[2022-12-19 06:51] LABS: Amphetamines+Metham, Urine Pos (Neg); Barbiturates, Urine Neg (Neg); Benzodiazepine, Urine Neg (Neg); Cocaine, Urine Neg (Neg); MDMA (Ecstacy), Urine Pos (Neg); Methadone, Urine Neg (Neg); Opiate, Urine Neg (Neg); Phencyclidine, Urine Neg (Neg)
--- NOTE | 2022-12-19 06:59 | Emergency Department Note ---
ED Visit Note Patient is a 31-year-old male who presents the ER who sent an email to his parents about killing self. 302 petition by mom. He has been eating cat food. 302 is signed and bed search is pending. Patient was medically cleared by Dr. Perez. Patient was accepted to 3 S. on 302. .
[2022-12-19] MEDS ORDERED: BISMUTH SUBSALICYLATE LIQD 236 ML PO PRN (09:33)
[2022-12-19] MEDS ORDERED: MAGNESIUM HYDROXIDE SUSP 30 ML UDC PO PRN (09:33)
[2022-12-19] MEDS ORDERED: hydrOXYzine HCl 25 MG TAB PO PRN (09:33)
[2022-12-19] MEDS ORDERED: ALUMINUM/MAGNESIUM SUSP 30 ML UDC PO PRN (09:33)
[2022-12-19] MEDS ORDERED: ACETAMINOPHEN 325 MG TAB PO PRN (09:33)
[2022-12-19] MEDS ORDERED: SODIUM CHLORIDE 0.65% NA SOLN 45 ML (OCEAN) PRN (09:33)
--- NOTE | 2022-12-19 10:22 | History & Physical ---
Date of Service December 19, 2022 Impression / Recommendations Forest Salguero is a 31 year old man with a history of ADHD and Tourette's disease who was admitted for increasingly bizarre behaviors and concerns for self-harm after making statements to his mother that she would soon find him on 302 commitment. Diagnostically consistent with unspecified psychosis with differential including primary psychotic disorder vs MDD with psychotic features (though he denies any symptoms of depression) vs acute sal (though currently no signs of psychomotor changes, rapid speech, or decreased sleep) vs substance- induced (UDS positive for amp/meth and MDMA with no evidence for outpatient stimulant prescriptions and he reported use of injections he is buying from the [employer] and suboxone intermittently) vs 2/2 delirium from K+ change (very unlikely as fully oriented and ED provider did not feel hypokalemia was of concern nor requiring any treatment). For now no signs of opioid withdrawal but will monitor and if needed will start COWS protocol, per his report use of any illicit or old Suboxone is low dose and only intermittent. For now will start potassium supplementation and monitor his po intake as unclear if psychosis and disorganized behaviors have been leading to avoidance of potassium or limited po intake. He requires psychiatric hospitalization for diagnostic clarification, safety and stabilization, medication management and development of further coping skills. Discussed medication treatment options including starting an antipsychotic. Discussed risks, benefits and alternatives. He is not interested in taking any medication at this time. Reviewed that I would be ordering risperidone but that he can decline if he desires. Reviewed side effects including but not limited to: movement (TD, NMS), cardiac (QTc prolongation), and metabolic (stroke, insulin resistance) and necessity for fasting lipid and glucose labwork should he agree to take it and AIMS done with score of 0. The patient's use history suggests problematic substance use. Brief intervention was offered and accepted. Intervention was greater than 5 minutes in length and included assessing readiness to quit, advice on how to reduce or abstain and to set a specific goal for this hospitalization. 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 The patient is in precontemplative stage with regards to transtheoretical model of change. The patient is advised to decrease consumption due to depressant effects, risk of causing psychosis and risk of interaction with prescription medications. He agrees to think about possibility that cannabis or other substances could impact his mood and will be provided with recovery materials to continue to educate self on how to cope with their condition without using substances. MNPR due to psychosis with odd behaviors and paranoia (1) Unspecified psychosis not due to a substance or known physiological condition: (2) Substance use: Plan 12/19/2022: The patient was admitted to the [facility] ([facility]) on q15 min checks (behavioral with suicide precautions) for safety. The patient will participate in group, recreational, and milieu therapies and will be offered additional individual and family sessions as clinically appropriate. -Start potassium 10 mEq po BID -Start risperidone 0.5mg BID po Inventory Assets Strengths: supportive family, lives independently, has housing Needs: health insurance, outpatient providers, increased coping skills, safety and stabilization, medication adjustment Suicide Risk Level Suicide Risk Level: High-Moderate (q15 min suicide checks) (denies SI but sent emails reporting self-harm and that he would be found to his mother, currently feels safe in the hospital and agrees to let nursing know should he feel unsafe, develop SI or require further support) Risk Factors Assessment Male: Yes : Yes Do You Have Access To A Gun?: No Health Problems: No Mental Health Diagnoses: Yes Substance Use Disorders: Yes Previous Attempt: No Family History of Suicide: No Previous Psychiatric Hospitalization: No Protective Factors Assessment 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 Chief Complaint "Yeah I'm piss*d off". History of Present Illness Jose M presents for psychiatric admission for bizarre behaviors and after making statements that he was going to in emails to his mother. His mother filed a 302 petition stating: "My son, Jose M Lincoln, has been displaying a pervasive pattern of bizarre behavior for years. Over the past few days, the frequency of these behaviors have increased to an untenable level. He has expressed paranoid ideation in that his father is not his father and accuses me of cheating on him in a disorganized and tangential manner. He stays up for days at a time. He is religiously preoccupied. Today, December 18, he sent me an email consisting only of 11 Bible quotes without content or prompting. Most concerningly, perhaps, are the two emails stating that "This is the last you ever hear from me" and that I "will have on my hands" as if he were sending me a suicide note. These two emails were sent on December 17. On December 16, he showed up at my house with no shoes and a bag of cat food, which he claims he's been eating. I feel that without immediate psychiatric intervention, he will ." Review of copies of the emails he sent to his mother were reviewed and notable for stating in the subject line "Hungry hurts" with the email stating "This will be the last you ever hear from me again. Just wanted to say good bye. Kick the door down, call the refrigerator crater so whatever you want to see that I'm not kidding. Good bye". Another email is filled with anabaptist quotes also focused on the theme of hunger or thirst i.e. "Felice 25:42 for I was hungry, and you gave me nothing to eat; I was thirsty, and you gave me nothing to drink". Today he describes feeling upset as he feels his mother tricked him into having to come to the hospital. States his only recent issue has been lack of transportation since his roommate moved out and that this has prevented him from getting food. He describes attempting to get his parents to help him with food by sending the aforementioned emails but that his mother "stonewalled me" which he describes further when prompted as "she'll ignore me for months and give me the silent treatment". He recalls going to his parents home, which is next door to where he lives, and "It's 4 am, I knocked on the door loudly and they didn't like that". Feels his mood has been stable, denies sleep issues except maybe sleeping a bit more because "of the winter months". He also feels the winter months lead him to use more of his "Desoxyen" which he says was previously prescribed for him by a PCP for ADHD and takes this intermittently. He is perseverative about "everyone thinks I'm using crystal meth, I'm not, meth is what desoxyen is" and repeats "look into this" with increasing intensity multiple times. He denies taking any scheduled medications but reports he will sometimes take suboxone, that he recalls getting from a prior gallbladder surgery, and recently took a few of these because "I felt like recently I was passing a kidney stone". Notably review of PDMP shows no recent or historical scripts for Desoxyen nor Suboxone. He also told the psychiatric liason that he has been using some type of injectable male enhancement drug that he buys from a local [employer] but d oes not disclose this while talking with me. Attempts to discuss his recent eating habits and low potassium level in the ED are unsuccessful. 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 Of note during his admission for cholecystectomy in June 2020 he reported no known allergies. He is denies any history of psychosis, sal, depression, anxiety, eating disorder, nor self-harm. Past Psychiatric History Current Psychiatric Diagnosis: ADHD, Tourettes, ?schizphrenia, ?Bipolar Outpatient Services: none Previous Psych Admissions: denies Do You Have Access To A Gun?: No History of Previous Suicide Attempt: No Past Medication Trials: desoxyen, per chart review in 2019 he reported taking gabapentin 200mg QID for Tourette's and dextroamphetamine 30mg daily for ADHD as well as Subutex 2mg SL daily but using intermittently for kidney stones (in 06/2020 provider noted no evidence of Subutex scripts on PDMP or in discussion with pharmacy at that time either). Past Head Trauma/Neuro History History of Concussion/Seizure: No Allergies Allergy/AdvReac Type Severity Reaction Status Date / Time banana Allergy Intermediate Difficulty Unverified 12/19/22 11:22 Breathing Family History Family History of: Doesn't Know Alcohol History Hx of Alcohol Use Over the Past 12 Months: No AUDIT Total Score: 2 Denies any recent alcohol use Smoking Use Have You Smoked or Used Tobacco Products in the Last 30 Days: No tobacco type: e-cigarettes Smoking Status: Former smoker (reports he sometimes uses nicotine gum) Substance History Hx of Prescription Med Misuse Over the Past 12 Months: No Hx of Over the Counter Med Misuse Over the Past 12 Months: No Hx of Inhalent Misuse Over the Past 12 Months: No Hx of Organic Substance Use Over the Past 12 Months: Yes (smokes marijuana 2x per week) Hx of Illegal Substances/Street Drug Use Over Past 12 Months: Yes (UDS + for meth and MDMA - no prescribed meds noted) Problems as a Result of Past Substance Use: None Identified Reports recent cannabis use, states he takes old prescription of Desoxen intermittently, reports taking old script of Suboxone intermittently Personal History Living Arrangements: Apartment Childhood: parents are , has older siblings Highest Grade Completed: High School Graduate and College Employment Status: Unemployed (previously worked in [employer] at [employer] last 1 year ago) Marital Status: Single Number Of Children: 0 Beliefs That Will Affect Care: None Current Legal Problems: No Hx Legal Problems: No Hx Traumatic Life Events: No Patient History Medical History (Updated 12/19/22 @ 11:49 by Jen Chong MD) Acute cholecystitis Cholelithiasis Kidney stones Renal colic Social History Tobacco Type: E-cigarettes / Vaping Second Hand Exposure: No; Hx Alcohol Use: No Hx Substance Use: Yes Preferred Language: Portuguese Communication Ability: Effective Svp Research And Strategic Analysis Required: No Beliefs That Will Affect Care: None Current Living Situation: Alone Feels Safe at Home: Yes Gender Identity: Male Assistive Devices: None Review of Systems Review of Systems: All systems reviewed & are unremarkable except as noted in HPI & below Physical Exam Psychiatric: Orientation: alert and oriented x 3 Apperance: appropriately dressed and appropriately groomed Eye Contact: + fair eye contact Motor Behavior: no abnormal motor movements Speech: normal rate/rhythm/volume of speech Affect: + irritable affect Mood: + irritable mood Thought Process: + tangential thought process and + looseness of associations Thought Content: + paranoid and + delusions Suicidal Thoughts: denies suicidal thoughts (but sent emails to his mother stating he would be found ); + reports suicidal plan and + reports suicidal intent Homicidal Thoughts: denies homicidal thoughts Hallucinations: no auditory hallucinations and no visual hallucinations Cognition: recent memory grossly intact, remote memory grossly intact, attention grossly intact and language grossly intact Insight: + impaired insight Judgment: + impaired judgement Vital Signs (Past 24 Hours): Last Vital Signs Temp 37.1 C 12/19/22 09:39 Pulse 113 H 12/19/22 09:39 Resp 18 12/19/22 09:39 BP 151/97 H 12/19/22 09:39 Pulse Ox 98 12/19/22 09:39 O2 Del Method Room Air 12/19/22 09:39 Exam Statement: A physical exam was performed in the ED by Dr. Perez for the purposes of medical clearance. I accept that physical as correct and adequate for the purposes of the inpatient physical exam. Results & Data ([facility] [place]) Laboratory Results Laboratory Results - last 24 hr 12/19/22 12/19/22 12/19/22 04:45 04:45 04:45 WBC 6.32 RBC 5.25 Hgb 14.8 Hct 44.0 MCV 83.8 MCH 28.2 MCHC 33.6 RDW Std Deviation 38.1 RDW Coeff of Stevan 12.6 Plt Count 305 MPV 9.8 Immature Gran % (Auto) 0.5 Neut % (Auto) 61.3 Lymph % (Auto) 26.6 [place] % (Auto) 9.7 Eos % (Auto) 1.3 Baso % (Auto) 0.6 Neut # (Auto) 3.88 Lymph # (Auto) 1.68 [place] # (Auto) 0.61 H Eos # (Auto) 0.08 Baso # (Auto) 0.04 Immature Gran # (Auto) 0.03 Sodium 141 Potassium 3.1 L Chloride 103 Carbon Dioxide 31 Anion Gap 7 BUN 8 Creatinine 1.14 Est Cr Clr Drug Dosing 104.2 Est GFR ( Amer) 97.4 Est GFR (Non-Af Amer) 84.0 BUN/Creatinine Ratio 7.0 L Glucose 118 H Calcium 9.4 Total Bilirubin 0.4 AST 27 ALT 48 Alkaline Phosphatase 148 H Total Protein 8.4 H Albumin 4.4 Globulin 4.0 Albumin/Globulin Ratio 1.1 TSH 1.325 Urine Color Urine Appearance Urine pH Ur Specific [place] Urine Protein Urine Glucose (UA) Urine Ketones Urine Blood Urine Nitrite Urine Bilirubin Urine Urobilinogen Ur Leukocyte Esterase Salicylates Urine Opiates Screen Ur Methadone, Qual Acetaminophen Urine Barbiturates Ur Phencyclidine (PCP) U Amphetamines Confirm U Amphetamin/Meth Scrn U Methamphetamin Confrm Urine MDEA MDMA (Ecstasy) Screen MDMA Urine MDMA U Benzodiazepines Scrn Ur Cocaine Metabolite U Marijuana (THC) Screen Drug Screen Comment Ethyl Alcohol mg/dL SARS-CoV-2, RNA, NAAT 12/19/22 12/19/22 12/19/22 04:45 04:45 04:45 WBC RBC Hgb Hct MCV MCH MCHC RDW Std Deviation RDW Coeff of Stevan Plt Count MPV Immature Gran % (Auto) Neut % (Auto) Lymph % (Auto) [place] % (Auto) Eos % (Auto) Baso % (Auto) Neut # (Auto) Lymph # (Auto) [place] # (Auto) Eos # (Auto) Baso # (Auto) Immature Gran # (Auto) Sodium Potassium Chloride Carbon Dioxide Anion Gap BUN Creatinine Est Cr Clr Drug Dosing Est GFR ( Amer) Est GFR (Non-Af Amer) BUN/Creatinine Ratio Glucose Calcium Total Bilirubin AST ALT Alkaline Phosphatase Total Protein Albumin Globulin Albumin/Globulin Ratio TSH Urine Color Urine Appearance Urine pH Ur Specific [place] Urine Protein Urine Glucose (UA) Urine Ketones Urine Blood Urine Nitrite Urine Bilirubin Urine Urobilinogen Ur Leukocyte Esterase Salicylates < 3.0 L Urine Opiates Screen Ur Methadone, Qual Acetaminophen < 3 L Urine Barbiturates Ur Phencyclidine (PCP) U Amphetamines Confirm U Amphetamin/Meth Scrn U Methamphetamin Confrm Urine MDEA MDMA (Ecstasy) Screen MDMA Urine MDMA U Benzodiazepines Scrn Ur Cocaine Metabolite U Marijuana (THC) Screen Drug Screen Comment Ethyl Alcohol mg/dL < 10.0 SARS-CoV-2, RNA, NAAT NEGATIVE 12/19/22 12/19/22 12/19/22 05:38 05:38 05:38 WBC RBC Hgb Hct MCV MCH MCHC RDW Std Deviation RDW Coeff of Stevan Plt Count MPV Immature Gran % (Auto) Neut % (Auto) Lymph % (Auto) [place] % (Auto) Eos % (Auto) Baso % (Auto) Neut # (Auto) Lymph # (Auto) [place] # (Auto) Eos # (Auto) Baso # (Auto) Immature Gran # (Auto) Sodium Potassium Chloride Carbon Dioxide Anion Gap BUN Creatinine Est Cr Clr Drug Dosing Est GFR ( Amer) Est GFR (Non-Af Amer) BUN/Creatinine Ratio Glucose Calcium Total Bilirubin AST ALT Alkaline Phosphatase Total Protein Albumin Globulin Albumin/Globulin Ratio TSH Urine Color Yellow Urine Appearance Clear Urine pH 6.5 Ur Specific [place] 1.008 Urine Protein Negative Urine Glucose (UA) Negative Urine Ketones Negative Urine Blood Negative Urine Nitrite Negative Urine Bilirubin Negative Urine Urobilinogen Negative Ur Leukocyte Esterase Negative Salicylates Urine Opiates Screen Neg Ur Methadone, Qual Neg Acetaminophen Urine Barbiturates Neg Ur Phencyclidine (PCP) Neg U Amphetamines Confirm Pending U Amphetamin/Meth Scrn Pos H U Methamphetamin Confrm Pending Urine MDEA Pending MDMA (Ecstasy) Screen Pos H MDMA Pending Urine MDMA Pending U Benzodiazepines Scrn Neg Ur Cocaine Metabolite Neg U Marijuana (THC) Screen Neg Drug Screen Comment Pending Ethyl Alcohol mg/dL SARS-CoV-2, RNA, NAAT Current Inpatient Medications Current Inpatient Medications: Current Inpatient Medications Acetaminophen (Acetaminophen 325 Mg Tab) 650 mg PO Q4H PRN PRN Reason: Headache or Minor Fever Stop: 01/18/23 09:32 Al Hydrox/Mg Hydrox/Simethicone (Aluminum/Magnesium Susp 30 Ml Udc) 30 ml PO Q4H PRN PRN Reason: GI Upset Stop: 01/18/23 09:32 Bismuth Subsalicylate (Bismuth Subsalicylate Liqd 236 Ml) 15 ml PO PRN PRN PRN Reason: Loose Stool Stop: 01/18/23 09:32 Hydroxyzine HCl (Hydroxyzine Hcl 25 Mg Tab) 25 mg PO Q4H PRN PRN Reason: Anxiety Stop: 01/18/23 09:32 Hydroxyzine HCl (Hydroxyzine Hcl 25 Mg Tab) 50 mg PO HSZ PRN PRN Reason: Insomnia Stop: 01/18/23 09:32 Magnesium Hydroxide (Magnesium Hydroxide Susp 30 Ml Udc) 30 ml PO DAILY PRN PRN Reason: Constipation Stop: 01/18/23 09:32 Sodium Chloride (Sodium Chloride 0.65% Na Soln 45 Ml ([place])) 1 - 2 sprays NA PRN PRN PRN Reason: Nasal Dryness/Congestion Stop: 01/18/23 09:32
[2022-12-19] MEDS ORDERED: NICOTINE POLACRILEX 2 MG GUM MT PRN (11:51)
[2022-12-19] MEDS: risperiDONE 0.5 MG TABLET PO SCH (20:52)
[2022-12-19] MEDS: POTASSIUM CHLORIDE 10 MEQ TABCR PO SCH (20:52)
[2022-12-20] MEDS: POTASSIUM CHLORIDE 10 MEQ TABCR PO SCH ×2 (10:15→20:47)
[2022-12-20] MEDS: risperiDONE 0.5 MG TABLET PO SCH ×2 (10:15→20:46)
--- NOTE | 2022-12-20 15:02 | Psychiatric Progress Note ---
Date of Service December 20, 2022 Impression / Recommendations Forest Salguero is a 31 year old man with a history of ADHD and Tourette's disease who was admitted for increasingly bizarre behaviors and concerns for self-harm after making statements to his mother that she would soon find him on 302 commitment. Diagnostically consistent with unspecified psychosis with differential including primary psychotic disorder vs MDD with psychotic features (though he denies any symptoms of depression) vs acute sal (though currently no signs of psychomotor changes, rapid speech, or decreased sleep) vs substance- induced (UDS positive for amp/meth and MDMA with no evidence for outpatient stimulant prescriptions and he reported use of injections he is buying from the [employer] and suboxone intermittently) vs 2/2 delirium from K+ change (very unlikely as fully oriented and ED provider did not feel hypokalemia was of concern nor requiring any treatment). 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 Seems most consistent with substance-induced psychosis and possible schizoid PD versus delusional disorder versus primary psychotic disorder. Continues to refuse all medications, doesn't meet criteria for medication over objection/involuntary medications. (1) Unspecified psychosis not due to a substance or known physiological condition: (2) Substance use: Plan 12/20/2022: Continue to offer medications. 12/19/2022: The patient was admitted to the [facility] ([facility]) on q15 min checks (behavioral with suicide precautions) for safety. The patient will participate in group, recreational, and milieu therapies and will be offered additional individual and family sessions as clinically appropriate. -Start potassium 10 mEq po BID -Start risperidone 0.5mg BID po Inventory Assets Strengths: supportive family, lives independently, has housing Needs: health insurance, outpatient providers, increased coping skills, safety and stabilization, medication adjustment Suicide Risk Level Suicide Risk Level: High-Moderate (q15 min suicide checks) (denies SI but sent emails reporting self-harm and that he would be found to his mother, currently feels safe in the hospital and agrees to let nursing know should he feel unsafe, develop SI or require further support) Risk Factors Assessment Male: Yes : Yes Do You Have Access To A Gun?: No Health Problems: No Mental Health Diagnoses: Yes Substance Use Disorders: Yes Previous Attempt: No Family History of Suicide: No Previous Psychiatric Hospitalization: No Protective Factors Assessment 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 Chief Complaint "I have been using Manum 357s". Review of Systems Sleep Information Total Hours of Sleep: 3 Sleep Comments: Pt refused offer for Vistaril, and off and on asleep the whole night. Meal Information Percent Meal Consumed - Breakfast: 50 Percent Meal Consumed - Lunch: 100 Percent Meal Consumed - Dinner: 100 Nutrition Comment: asleep Subjective Subjective Patient was seen & assessed and interval progress reviewed with treatment team nursing and social work. Attended groups yesterday afternoon and evening. Refusing potassium supplement and risperidone. Described to RN that his mother did not believe him when he said he was sober as she thought he was still using some type of substance. Overnight was fixated at times on being "set up" for positive UDS by being given orange juice stating a belief that this could cause a false positive amphetamine result. Also requested a police scanner overnight from RNs. Today is very irritable with being in the hospital. Adamantly disagrees that he could be here due to psychosis or substance-induced presentation and has ways to defend against everything I discuss as possibly concerning regarding paranoia, odd statements, etc. Continues to refuse consideration for any medications telling me he doesn't want to "cloud his mind" as being in the hospital can then serve as a "reset" of sorts. Gets easily fixated on UDS, asking for new UDS to be done, discussed why I did not feel this was necessary. Tells me the UDS initial screen was positive for amphetamine/meth because of his old ADHD medication. When I discuss that Desoxyn is an unusual medication choice for ADHD he states "yeah they would tell me at [facility] that it was hard to fill because it's not a typical drug" but then when I discuss how no scripts were shown on PDMP he explains this is because he never filled the medication at [facility] but only ever got it "from an old johana who practices [place], he just gave me samples of it". Cannot tell me this man's name. Wonders "why are you all trying to connect me being fired from [employer] and my UDS". Discussed that I knew of no such connections and that reason for discussing UDS is to determine if substances could be contributing to recent paranoia and odd behaviors. Refusing to sign any ROIs stating he needs to speak with his vp global first. Clarifies this vp global is someone his friend is consulting and then he speaks with his friend. Encouraged him to at least sign QING for his PCP and to allow social work to help him get set up medical insurance which he states he will consider. Says he gets muscle cramps at times but won't eat potassium and checks to see if it is in foods given previous throat swelling response to eating bananas. Wonders if his MDMA screen might be from a product Magnum 357 that his ex-roommate left behind from the gas station. Physical Exam Psychiatric Orientation: alert and oriented x 3 Apperance: appropriately dressed and appropriately groomed Eye Contact: + fair eye contact Motor Behavior: no abnormal motor movements Speech: normal rate/rhythm/volume of speech Affect: + irritable affect Mood: + irritable mood Thought Process: + tangential thought process and + looseness of associations Thought Content: + paranoid Suicidal Thoughts: denies suicidal thoughts (but sent emails to his mother stating he would be found ); + reports suicidal plan and + reports suicidal intent Homicidal Thoughts: denies homicidal thoughts Hallucinations: no auditory hallucinations and no visual hallucinations Cognition: recent memory grossly intact, remote memory grossly intact, attention grossly intact and language grossly intact Insight: + impaired insight Judgment: + impaired judgement Vital Signs (Past 24 Hours) Last Vital Signs Temp 37.1 C 12/19/22 19:38 Pulse 113 H 12/19/22 09:39 Resp 18 12/19/22 09:39 BP 151/97 H 12/19/22 09:39 Pulse Ox 98 12/19/22 09:39 O2 Del Method Room Air 12/19/22 09:39 Results & Data ([facility]) Current Inpatient Medications Current Inpatient Medications: Current Inpatient Medications Acetaminophen (Acetaminophen 325 Mg Tab) 650 mg PO Q4H PRN PRN Reason: Headache or Minor Fever Stop: 01/18/23 09:32 Al Hydrox/Mg Hydrox/Simethicone (Aluminum/Magnesium Susp 30 Ml Udc) 30 ml PO Q4H PRN PRN Reason: GI Upset Stop: 01/18/23 09:32 Bismuth Subsalicylate (Bismuth Subsalicylate Liqd 236 Ml) 15 ml PO PRN PRN PRN Reason: Loose Stool Stop: 01/18/23 09:32 Hydroxyzine HCl (Hydroxyzine Hcl 25 Mg Tab) 25 mg PO Q4H PRN PRN Reason: Anxiety Stop: 01/18/23 09:32 Hydroxyzine HCl (Hydroxyzine Hcl 25 Mg Tab) 50 mg PO HSZ PRN PRN Reason: Insomnia Stop: 01/18/23 09:32 Magnesium Hydroxide (Magnesium Hydroxide Susp 30 Ml Udc) 30 ml PO DAILY PRN PRN Reason: Constipation Stop: 01/18/23 09:32 Nicotine Polacrilex (Nicotine Polacrilex 2 Mg Gum) 1 piece MT PRN PRN PRN Reason: nicotine cravings Stop: 01/18/23 11:50 Potassium Chloride (Potassium Chloride 10 Meq Tabcr) 10 meq PO BID NIKO Stop: 01/18/23 20:59 Last Admin: 12/20/22 10:15 Dose: Not Given Risperidone (Risperidone 0.5 Mg Tablet) 0.5 mg PO BID NIKO Stop: 01/18/23 20:59 Last Admin: 12/20/22 10:15 Dose: Not Given Sodium Chloride (Sodium Chloride 0.65% Na Soln 45 Ml ([place])) 1 - 2 sprays NA PRN PRN PRN Reason: Nasal Dryness/Congestion Stop: 01/18/23 09:32 Mental Health & Subst Abuse Tx Therapist Name of Therapist: SANDRA Pharmaceutical Assistant Name of Pharmaceutical Assistant: SANDRA Post Discharge Appointments Primary Care Physician Name Of Family Doctor/PCP: Nadia Hicks
[2022-12-21] MEDS: POTASSIUM CHLORIDE 10 MEQ TABCR PO SCH ×2 (08:39→21:06)
[2022-12-21] MEDS: risperiDONE 0.5 MG TABLET PO SCH ×2 (08:39→21:07)
--- NOTE | 2022-12-21 15:28 | Psychiatric Progress Note ---
Date of Service December 21, 2022 Impression / Recommendations Forest Salguero is a 31 year old man with a history of ADHD and Tourette's disease who was admitted for increasingly bizarre behaviors and concerns for self-harm after making statements to his mother that she would soon find him on 302 commitment. Diagnostically consistent with unspecified psychosis with differential including primary psychotic disorder vs MDD with psychotic features (though he denies any symptoms of depression) vs acute sal (though currently no signs of psychomotor changes, rapid speech, or decreased sleep) vs substance- induced (UDS positive for amp/meth and MDMA with no evidence for outpatient stimulant prescriptions and he reported use of injections he is buying from the [employer] and suboxone intermittently) vs 2/2 delirium from K+ change (very unlikely as fully oriented and ED provider did not feel hypokalemia was of concern nor requiring any treatment). 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 Seems to be improving slightly but still some odd statements, loosening of associations at times consistent with ongoing psychosis. Timing of losing access to Suboxone/Subutex prior to admission as psychosis started to develop suggests possible opioid withdrawal psychosis. Precontemplative, ongoing motivational interviewing related to substance use. Exploring ways to ensure he can meet needs of access to food moving forward. (1) Unspecified psychosis not due to a substance or known physiological conditio n: (2) Substance use: Plan 12/21/2022: Starting clonidine prn for opioid withdrawal 12/20/2022: Continue to offer medications. 12/19/2022: The patient was admitted to the [facility] ([facility]) on q15 min checks (behavioral with suicide precautions) for safety. The patient will participate in group, recreational, and milieu therapies and will be offered additional individual and family sessions as clinically appropriate. -Start potassium 10 mEq po BID -Start risperidone 0.5mg BID po Inventory Assets Strengths: supportive family, lives independently, has housing Needs: health insurance, outpatient providers, increased coping skills, safety and stabilization, medication adjustment Suicide Risk Level Suicide Risk Level: Moderate (q15 min suicide checks) (denies SI but sent emails reporting self-harm and that he would be found to his mother, currently feels safe in the hospital and agrees to let nursing know should he feel unsafe, develop SI or require further support) Risk Factors Assessment Male: Yes : Yes Do You Have Access To A Gun?: No Health Problems: No Mental Health Diagnoses: Yes Substance Use Disorders: Yes Previous Attempt: No Family History of Suicide: No Previous Psychiatric Hospitalization: No Protective Factors Assessment 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 Chief Complaint "It's hard to be honest". Review of Systems Sleep Information Total Hours of Sleep: 7.75 Sleep Comments: Pt refused offer for Vistaril, and off and on asleep the whole night. Meal Information Percent Meal Consumed - Breakfast: 100 Percent Meal Consumed - Lunch: 100 Percent Meal Consumed - Dinner: 100 Nutrition Comment: asleep Subjective Subjective Patient was seen & assessed and interval progress reviewed with treatment team nursing and social work. Attending all groups. Refusing to sign any further ROIs and now rescinded parents after RN confirmed hx of allergy to bananas. Took one dose of risperidone last night but refused K+ supplementation and risperidone this morning. States he felt it helped him sleep but isn't sure if he'll take it again. States his mood is "10 out of 10". Through ongoing motivational interviewing and extensive reassurance that HIPPA protects me from sharing substance use information with police he acknowledges history of misuse of Suboxone and Subutex and feels he might be experiencing some opioid withdrawal. Notes that in the past he's told providers he uses Suboxone and they order it for him automatically if he goes to the ED. States he has also used other s ubstances but speaks about this only in general terms. Discussed potential options for substance use treatment including referrals for opioid use treatment if he were interested in this. He states he feels he will be able to avoid substances moving forward due to his dealer just being placed in halfway before he came to the hospital. Review that timing of this seems to correlate with timing of psychosis. Continues to decline involving his family for support. Physical Exam Psychiatric Orientation: alert and oriented x 3 Apperance: appropriately dressed and appropriately groomed Eye Contact: + fair eye contact Motor Behavior: no abnormal motor movements Speech: normal rate/rhythm/volume of speech Affect: + anxious affect Mood: + anxious mood Thought Process: goal directed thought process and linear/logical thought process Thought Content: + paranoid (versus concern for legal ramifications of substance use) Suicidal Thoughts: + reports suicidal thoughts, + reports suicidal plan and + reports suicidal intent Homicidal Thoughts: denies homicidal thoughts Hallucinations: no auditory hallucinations and no visual hallucinations Cognition: recent memory grossly intact, remote memory grossly intact, attention grossly intact and language grossly intact Insight: + impaired insight Judgment: + impaired judgement Vital Signs (Past 24 Hours) Last Vital Signs Temp 36.6 C 12/21/22 06:37 Pulse 83 12/21/22 06:37 Resp 16 12/21/22 06:37 BP 100/65 12/21/22 06:37 Pulse Ox 98 12/19/22 09:39 O2 Del Method Room Air 12/19/22 09:39 Results & Data ([facility]) Current Inpatient Medications Current Inpatient Medications: Current Inpatient Medications Acetaminophen (Acetaminophen 325 Mg Tab) 650 mg PO Q4H PRN PRN Reason: Headache or Minor Fever Stop: 01/18/23 09:32 Al Hydrox/Mg Hydrox/Simethicone (Aluminum/Magnesium Susp 30 Ml Udc) 30 ml PO Q4H PRN PRN Reason: GI Upset Stop: 01/18/23 09:32 Bismuth Subsalicylate (Bismuth Subsalicylate Liqd 236 Ml) 15 ml PO PRN PRN PRN Reason: Loose Stool Stop: 01/18/23 09:32 Hydroxyzine HCl (Hydroxyzine Hcl 25 Mg Tab) 25 mg PO Q4H PRN PRN Reason: Anxiety Stop: 01/18/23 09:32 Hydroxyzine HCl (Hydroxyzine Hcl 25 Mg Tab) 50 mg PO HSZ PRN PRN Reason: Insomnia Stop: 01/18/23 09:32 Magnesium Hydroxide (Magnesium Hydroxide Susp 30 Ml Udc) 30 ml PO DAILY PRN PRN Reason: Constipation Stop: 01/18/23 09:32 Nicotine Polacrilex (Nicotine Polacrilex 2 Mg Gum) 1 piece MT PRN PRN PRN Reason: nicotine cravings Stop: 01/18/23 11:50 Potassium Chloride (Potassium Chloride 10 Meq Tabcr) 10 meq PO BID NIKO Stop: 01/18/23 20:59 Last Admin: 12/21/22 08:39 Dose: Not Given Risperidone (Risperidone 0.5 Mg Tablet) 0.5 mg PO BID NIKO Stop: 01/18/23 20:59 Last Admin: 12/21/22 08:39 Dose: Not Given Sodium Chloride (Sodium Chloride 0.65% Na Soln 45 Ml ([place])) 1 - 2 sprays NA PRN PRN PRN Reason: Nasal Dryness/Congestion Stop: 01/18/23 09:32 Mental Health & Subst Abuse Tx Therapist Name of Therapist: SANDRA Mid Level Developer Name of Mid Level Developer: SANDRA Post Discharge Appointments Primary Care Physician Name Of Family Doctor/PCP: Nadia Hicks
[2022-12-21] MEDS: cloNIDine HCL 0.1 MG TAB PO PRN (21:19)
[2022-12-21] MEDS: hydrOXYzine HCl 25 MG TAB PO PRN (23:22)
--- NOTE | 2022-12-22 08:51 | Psychiatric Progress Note ---
Date of Service December 22, 2022 Impression / Recommendations Forest Salguero is a 31 year old man with a history of ADHD and Tourette's disease who was admitted for increasingly bizarre behaviors and concerns for self-harm after making statements to his mother that she would soon find him on 302 commitment. Diagnostically consistent with unspecified psychosis with differential including primary psychotic disorder vs MDD with psychotic features (though he denies any symptoms of depression) vs acute sal (though currently no signs of psychomotor changes, rapid speech, or decreased sleep) vs substance- induced (UDS positive for amp/meth and MDMA with no evidence for outpatient stimulant prescriptions and he reported use of injections he is buying from the [facility] and suboxone intermittently) vs 2/2 delirium from K+ change (very unlikely as fully oriented and ED provider did not feel hypokalemia was of concern nor requiring any treatment). 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 Still reporting difficulty sleeping and likely opioid withdrawal side effects (vs addition substance withdrawal such as from amp/meth). Ongoing motivational interviewing regarding substance use and involving family supports. He prefers to discontinue the risperidone and use trazodone for sleep. Discussed medication treatment options in detail. Discussed risks, benefits and alternatives. Reviewed side effects including but not limited to: sedation, priapism, increased appetite. He continues to decline any additional substance use treatment such as residential or IOP. Not interested in any referrals for outpatient evaluation for MAT/Suboxone for opioid use. Monitoring opioid withdrawal using COWS with clonidine prn (currently scoring mild) as well as ibuprofen 600 mg q6h prn pain. (1) Unspecified psychosis not due to a substance or known physiological condition: (2) Substance use: Plan 12/22/2022: Discontinue risperidone. Start trazodone 50mg HS. 12/21/2022: Starting clonidine prn for opioid withdrawal 12/20/2022: Continue to offer medications. 12/19/2022: The patient was admitted to the [facility] ([facility]) on q15 min checks (behavioral with suicide precautions) for safety. The patient will participate in group, recreational, and milieu therapies and will be offered additional individual and family sessions as clinically appropriate. -Start potassium 10 mEq po BID -Start risperidone 0.5mg BID po Inventory Assets Strengths: supportive family, lives independently, has housing Needs: health insurance, outpatient providers, increased coping skills, safety and stabilization, medication adjustment Suicide Risk Level Suicide Risk Level: Moderate (q15 min suicide checks) (denies SI but sent emails reporting self-harm and that he would be found to his mother, currently feels safe in the hospital and agrees to let nursing know should he feel unsafe, develop SI or require further support) Risk Factors Assessment Male: Yes : Yes Do You Have Access To A Gun?: No Health Problems: No Mental Health Diagnoses: Yes Substance Use Disorders: Yes Previous Attempt: No Family History of Suicide: No Previous Psychiatric Hospitalization: No Protective Factors Assessment 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 Chief Complaint "I'm tired, I couldn't sleep well". Review of Systems Sleep Information Total Hours of Sleep: 7.5 Sleep Comments: Received Vistaril for sleep and Tylenol for body aches Meal Information Percent Meal Consumed - Breakfast: 100 Percent Meal Consumed - Lunch: 100 Percent Meal Consumed - Dinner: 100 Nutrition Comment: asleep Subjective Subjective Patient was seen & assessed and interval progress reviewed with treatment team nursing and social work. Attending groups. Slightly more medication seeking, asking for gabapentin or flexeril. Adherent with medications last night and today including potassium supplementation without any reaction. Today reports he feels like he is withdrawing from opioids due to feeling "achy in my joints" which he attributes to causing difficulty sleeping. Did not find the risperidone helpful for sleeping. Agrees to trial of trazodone. Declines offers for residential substance use treatment, suboxone clinic/MAT clinic referral, nor therapy or IOP for substance use. Feels he can avoid any further substance use on his own and doesn't want to be reliant on something like Suboxone. Continues to state he's only been using 2mg of Suboxone film or Subutex tab daily. Discussed that such a low dose would not typically cause the type of opioid withdrawal symptoms he is describing. He denies any other substance use or potential for higher amounts of opioids. Declines offer to do a support meeting with his parents or other supports. Physical Exam Psychiatric Orientation: alert and oriented x 3 Apperance: appropriately dressed and appropriately groomed Eye Contact: good eye contact Motor Behavior: no abnormal motor movements Speech: normal rate/rhythm/volume of speech Affect: + anxious affect Mood: + anxious mood Thought Process: goal directed thought process and linear/logical thought process Thought Content: reality based without delusions Suicidal Thoughts: denies suicidal thoughts Homicidal Thoughts: denies homicidal thoughts Hallucinations: no auditory hallucinations and no visual hallucinations Cognition: recent memory grossly intact, remote memory grossly intact, attention grossly intact and language grossly intact Insight: + impaired insight Judgment: + impaired judgement Vital Signs (Past 24 Hours) Last Vital Signs Temp 36.6 C 12/22/22 06:40 Pulse 94 H 12/22/22 06:40 Resp 16 12/22/22 06:40 BP 104/72 12/22/22 06:40 Pulse Ox 98 12/19/22 09:39 O2 Del Method Room Air 12/19/22 09:39 Results & Data ([facility]) Current Inpatient Medications Current Inpatient Medications: Current Inpatient Medications Acetaminophen (Acetaminophen 325 Mg Tab) 650 mg PO Q4H PRN PRN Reason: Headache or Minor Fever Stop: 01/18/23 09:32 Last Admin: 12/21/22 23:22 Dose: 650 mg Al Hydrox/Mg Hydrox/Simethicone (Aluminum/Magnesium Susp 30 Ml Udc) 30 ml PO Q4H PRN PRN Reason: GI Upset Stop: 01/18/23 09:32 Bismuth Subsalicylate (Bismuth Subsalicylate Liqd 236 Ml) 15 ml PO PRN PRN PRN Reason: Loose Stool Stop: 01/18/23 09:32 Clonidine HCl (Clonidine Hcl 0.1 Mg Tab) 0.1 mg PO Q8H PRN PRN Reason: opioid withdrawal Stop: 01/20/23 15:25 Last Admin: 12/21/22 21:19 Dose: 0.1 mg Hydroxyzine HCl (Hydroxyzine Hcl 25 Mg Tab) 25 mg PO Q4H PRN PRN Reason: Anxiety Stop: 01/18/23 09:32 Hydroxyzine HCl (Hydroxyzine Hcl 25 Mg Tab) 50 mg PO HSZ PRN PRN Reason: Insomnia Stop: 01/18/23 09:32 Last Admin: 12/21/22 23:22 Dose: 50 mg Magnesium Hydroxide (Magnesium Hydroxide Susp 30 Ml Udc) 30 ml PO DAILY PRN PRN Reason: Constipation Stop: 01/18/23 09:32 Nicotine Polacrilex (Nicotine Polacrilex 2 Mg Gum) 1 piece MT PRN PRN PRN Reason: nicotine cravings Stop: 01/18/23 11:50 Potassium Chloride (Potassium Chloride 10 Meq Tabcr) 10 meq PO BID NIKO Stop: 01/18/23 20:59 Last Admin: 12/21/22 21:06 Dose: 10 meq Risperidone (Risperidone 0.5 Mg Tablet) 0.5 mg PO BID NIKO Stop: 01/18/23 20:59 Last Admin: 12/21/22 21:07 Dose: 0.5 mg Sodium Chloride (Sodium Chloride 0.65% Na Soln 45 Ml ([place])) 1 - 2 sprays NA PRN PRN PRN Reason: Nasal Dryness/Congestion Stop: 01/18/23 09:32 Mental Health & Subst Abuse Tx Therapist Name of Therapist: SANDRA Internal Revenue Agent Name of Internal Revenue Agent: SANDRA Post Discharge Appointments Primary Care Physician Name Of Family Doctor/PCP: Nadia Hicks
[2022-12-22] MEDS: POTASSIUM CHLORIDE 10 MEQ TABCR PO SCH ×2 (09:03→20:39)
[2022-12-22] MEDS: risperiDONE 0.5 MG TABLET PO SCH (09:45)
[2022-12-22] MEDS ORDERED: IBUPROFEN 600 MG TAB PO PRN (16:13)
[2022-12-22 20:14] VITALS: O2SAT 100
[2022-12-22] MEDS: cloNIDine HCL 0.1 MG TAB PO PRN (20:39)
[2022-12-22] MEDS ORDERED: traZODone HCL 50 MG TAB PO SCH (22:00)
[2022-12-22] MEDS: hydrOXYzine HCl 25 MG TAB PO PRN (22:14)
[2022-12-23] MEDS: POTASSIUM CHLORIDE 10 MEQ TABCR PO SCH (08:35)
--- NOTE | 2022-12-23 08:49 | Discharge Summary ---
Date of Service December 23, 2022 History of Present Illness Jose M presents for psychiatric admission for bizarre behaviors and after making statements that he was going to in emails to his mother. His mother filed a 302 petition stating: "My son, Jose M Austin, has been displaying a pervasive pattern of bizarre behavior for years. Over the past few days, the frequency of these behaviors have increased to an untenable level. He has expressed paranoid ideation in that his father is not his father and accuses me of cheating on him in a disorganized and tangential manner. He stays up for days at a time. He is religiously preoccupied. Today, December 18, he sent me an email consisting only of 11 Bible quotes without content or prompting. Most concerningly, perhaps, are the two emails stating that "This is the last you ever hear from me" and that I "will have on my hands" as if he were sending me a suicide note. These two emails were sent on December 17. On December 16, he showed up at my house with no shoes and a bag of cat food, which he claims he's been eating. I feel that without immediate psychiatric intervention, he will ." Review of copies of the emails he sent to his mother were reviewed and notable for stating in the subject line "Hungry hurts" with the email stating "This will be the last you ever hear from me again. Just wanted to say good bye. Kick the door down, call the senior functional analyst so whatever you want to see that I'm not kidding. Goodbye". Another email is filled with protestant quotes also focused on the theme of hunger or thirst i.e. "Felice 25:42 for I was hungry, and you gave me nothing to eat; I was thirsty, and you gave me nothing to drink". Today he describes feeling upset as he feels his mother tricked him into having to come to the hospital. States his only recent issue has been lack of transportation since his roommate moved out and that this has prevented him from getting food. He describes attempting to get his parents to help him with food by sending the aforementioned emails but that his mother "stonewalled me" which he describes further when prompted as "she'll ignore me for months and give me the silent treatment". He recalls going to his parents home, which is next door to where he lives, and "It's 4 am, I knocked on the door loudly and they didn't like that". Feels his mood has been stable, denies sleep issues except maybe sleeping a bit more because "of the winter months". He also feels the winter months lead him to use more of his "Desoxyen" which he says was previously prescribed for him by a PCP for ADHD and takes this intermittently. He is perseverative about "everyone thinks I'm using crystal meth, I'm not, meth is what desoxyen is" and repeats "look into this" with increasing intensity multiple times. He denies taking any scheduled medications but reports he will sometimes take roper boxone, that he recalls getting from a prior gallbladder surgery, and recently took a few of these because "I felt like recently I was passing a kidney stone". Notably review of PDMP shows no recent or historical scripts for Desoxyen nor Suboxone. He also told the psychiatric liason that he has been using some type of injectable male enhancement drug that he buys from a local [employer] but does not disclose this while talking with me. Attempts to discuss his recent eating habits and low potassium level in the ED are unsuccessful. 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 Of note during his admission for cholecystectomy in June 2020 he reported no known allergies. He is denies any history of psychosis, sal, depression, anxiety, eating disorder, nor self-harm. Physical Exam Vital Signs (Past 24 Hours) Last Vital Signs Temp 37.1 C 12/23/22 06:34 Pulse 82 12/23/22 06:36 Resp 18 12/23/22 06:34 BP 122/82 12/23/22 06:36 Pulse Ox 100 12/22/22 20:13 O2 Del Method Room Air 12/22/22 20:13 See admission H&P and DOD summary. Principal Diagnosis Substance-induced psychosis Psychiatric Data See daily stay summary. In short, patient was engaged with the social/therapeutic milieu of the unit, safety was maintained and the patient was cooperative with care (initially declined medications but became adherent mid- way through his admission). Diagnostically given quick response to low dose risperidone, rapid improvement of psychosis and signs of opioid withdrawal and reported substance use clinical picture felt to be most consistent with substance-induced versus substance-withdrawal induced psychosis. Medication changes included risperidone use and potassium supplementation and they tolerated this well. Given resolution of psychosis with no further symptoms his risperidone was discontinued and he declined having this nor any other psychiatric medications prescribed at discharge. He declined offers for residential, IOP or outpatient referrals for substance use treatment or consideration for MAT for reported use of non-prescribed Suboxone/Subtex. UDS confirmatory testing pending at time of discharge but was positive on initial screen for amp/methamphetamine and MDMA with no reported prescriptions that would be anticipated to have caused a false positive result on initial screening. Remains precontemplative about substance use treatment but plans to avoid substance use after discharge and believes he will be successful in this. He did agree to having a Narcan script sent on discharge and has used this on peers before and understands how to administer this. On day of discharge he also disclosed a history of misuse of gabapentin in the past. He declined offers for a family or support session. A safety plan was completed prior to discharge. He was not felt to meet 303 commitment criteria given improvement without evidence for psychosis, consistent denial of SI, denial of HI/no aggression and organized with respect to meeting his personal safety/nutrition/hygiene needs. He participated in safety planning and in discussions about ways to seek support and recognizing warning signs and utilizing coping skills. On the day of discharge he stated his mood was "good and ready to go home" and remained future-oriented including seeing his cat, reaching out to his ex-roommate and engaging in aftercare appointments for primary care and case management. Day of Discharge Assessment Today the patient voices readiness for discharge. They note improvement in mood and anxiety. They deny thoughts of harm to self or others. Thoughts are organized and they are clinically improved from admission. There is no evidence of psychosis. They improved in the hospital with support and medication adjustments. They agree to take medications as prescribed and keep follow-up ap pointments. At the time of the discharge they are deemed to be stable and appropriate for outpatient level of care. They are not deemed to be at imminent risk of harm to self or others. They are aware of emergency and crisis services. Knows to call 911 or go to nearest emergency care center if in a crisis which cannot be handled as an outpatient. Transition of Care Transition Of Care Record: was reviewed with the patient Advance Directives Advance Directives Information Provided: Yes Advance Directives: No Mental Health Advance Directive: No Advance Directives on File: No Living Will: No Power of Telescope Operator: No Advance Directives Reason:: Declines as Mental Health Visit. Suicide Risk Level Suicide Risk Level Comments: Acute risk is low given improvement in mood and denial of SI, lack of access to lethal means, plan to avoid substance use, improvement in sleep, improvement in psychosis. Chronic risk is low to moderate given some non-modifiable risk factors: periods of impulsivity, substance use, poor social support, limited financial means but also with protective factors including housing, supportive parents, sense of responsibility to family and social supports, outpatient care in place (allowed PCP and case management), positive coping skills, capacity to establish therapeutic alliance, capacity for self-observation. Counseled on ways to reduce acute and chronic risk including avoiding substance use, engaging with outpatient providers, using safety plan if needed, utilizing supports, and using coping skills. Modifiable risk factors of psychosis and SI were addressed during hospitalization through development of new coping skills, family meeting, safety planning, and medication adjustments. 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 Kit offered to patient. Patient accepts. He requests that prescription be sent to a local [facility] pharmacy. Naloxone education provided with verbal and written instructions for use, including the following: Call 911 immediately Narcan is used to temporarily reverse the effects of opioid medicines Narcan is short acting, person overdosing could slip back into overdose state (hence importance of calling 911) Narcan has no effect in people who are not taking opioid medicines. Administering Narcan can cause person to experience serious withdrawal symptoms (person might not wake up happy) Review of [facility] provision Discharge Data Lab Results 12/19/22 12/19/22 12/19/22 04:45 04:45 04:45 WBC 6.32 RBC 5.25 Hgb 14.8 Hct 44.0 MCV 83.8 MCH 28.2 MCHC 33.6 RDW Std Deviation 38.1 RDW Coeff of Stevan 12.6 Plt Count 305 MPV 9.8 Immature Gran % (Auto) 0.5 Neut % (Auto) 61.3 Lymph % (Auto) 26.6 [place] % (Auto) 9.7 Eos % (Auto) 1.3 Baso % (Auto) 0.6 Neut # (Auto) 3.88 Lymph # (Auto) 1.68 [place] # (Auto) 0.61 H Eos # (Auto) 0.08 Baso # (Auto) 0.04 Immature Gran # (Auto) 0.03 Sodium 141 Potassium 3.1 L Chloride 103 Carbon Dioxide 31 Anion Gap 7 BUN 8 Creatinine 1.14 Est Cr Clr Drug Dosing 104.2 Est GFR ( Amer) 97.4 Est GFR (Non-Af Amer) 84.0 BUN/Creatinine Ratio 7.0 L Glucose 118 H Calcium 9.4 Total Bilirubin 0.4 AST 27 ALT 48 Alkaline Phosphatase 148 H Total Protein 8.4 H Albumin 4.4 Globulin 4.0 Albumin/Globulin Ratio 1.1 TSH 1.325 Urine Color Urine Appearance Urine pH Ur Specific [place] Urine Protein Urine Glucose (UA) Urine Ketones Urine Blood Urine Nitrite Urine Bilirubin Urine Urobilinogen Ur Leukocyte Esterase Salicylates Urine Opiates Screen Ur Methadone, Qual Acetaminophen Urine Barbiturates Ur Phencyclidine (PCP) U Amphetamin/Meth Scrn MDMA (Ecstasy) Screen U Benzodiazepines Scrn Ur Cocaine Metabolite U Marijuana (THC) Screen Ethyl Alcohol mg/dL SARS-CoV-2, RNA, NAAT 12/19/22 12/19/22 12/19/22 04:45 04:45 04:45 WBC RBC Hgb Hct MCV MCH MCHC RDW Std Deviation RDW Coeff of Stevan Plt Count MPV Immature Gran % (Auto) Neut % (Auto) Lymph % (Auto) [place] % (Auto) Eos % (Auto) Baso % (Auto) Neut # (Auto) Lymph # (Auto) [place] # (Auto) Eos # (Auto) Baso # (Auto) Immature Gran # (Auto) Sodium Potassium Chloride Carbon Dioxide Anion Gap BUN Creatinine Est Cr Clr Drug Dosing Est GFR ( Amer) Est GFR (Non-Af Amer) BUN/Creatinine Ratio Glucose Calcium Total Bilirubin AST ALT Alkaline Phosphatase Total Protein Albumin Globulin Albumin/Globulin Ratio TSH Urine Color Urine Appearance Urine pH Ur Specific [place] Urine Protein Urine Glucose (UA) Urine Ketones Urine Blood Urine Nitrite Urine Bilirubin Urine Urobilinogen Ur Leukocyte Esterase Salicylates < 3.0 L Urine Opiates Screen Ur Methadone, Qual Acetaminophen < 3 L Urine Barbiturates Ur Phencyclidine (PCP) U Amphetamin/Meth Scrn MDMA (Ecstasy) Screen U Benzodiazepines Scrn Ur Cocaine Metabolite U Marijuana (THC) Screen Ethyl Alcohol mg/dL < 10.0 SARS-CoV-2, RNA, NAAT NEGATIVE 12/19/22 12/19/22 05:38 05:38 WBC RBC Hgb Hct MCV MCH MCHC RDW Std Deviation RDW Coeff of Stevan Plt Count MPV Immature Gran % (Auto) Neut % (Auto) Lymph % (Auto) [place] % (Auto) Eos % (Auto) Baso % (Auto) Neut # (Auto) Lymph # (Auto) [place] # (Auto) Eos # (Auto) Baso # (Auto) Immature Gran # (Auto) Sodium Potassium Chloride Carbon Dioxide Anion Gap BUN Creatinine Est Cr Clr Drug Dosing Est GFR ( Amer) Est GFR (Non-Af Amer) BUN/Creatinine Ratio Glucose Calcium Total Bilirubin AST ALT Alkaline Phosphatase Total Protein Albumin Globulin Albumin/Globulin Ratio TSH Urine Color Yellow Urine Appearance Clear Urine pH 6.5 Ur Specific [place] 1.008 Urine Protein Negative Urine Glucose (UA) Negative Urine Ketones Negative Urine Blood Negative Urine Nitrite Negative Urine Bilirubin Negative Urine Urobilinogen Negative Ur Leukocyte Esterase Negative Salicylates Urine Opiates Screen Neg Ur Methadone, Qual Neg Acetaminophen Urine Barbiturates Neg Ur Phencyclidine (PCP) Neg U Amphetamin/Meth Scrn Pos H MDMA (Ecstasy) Screen Pos H U Benzodiazepines Scrn Neg Ur Cocaine Metabolite Neg U Marijuana (THC) Screen Neg Ethyl Alcohol mg/dL SARS-CoV-2, RNA, NAAT Hospital Course (1) Substance-induced psychotic disorder: (2) Substance use: Plan 12/23/2022: He found trazodone slightly helpful for sleep, feels he will sleep well at home without medications. Declines script for trazodone nor any other psychiatric medications. 12/22/2022: Discontinue risperidone. Trial of trazodone 50mg HS. 12/21/2022: Starting clonidine prn for opioid withdrawal 12/20/2022: Continue to offer medications. 12/19/2022: The patient was admitted to the [facility] ([facility] inpatient mental health unit) on q15 min checks (behavioral with suicide precautions) for safety. The patient will participate in group, recreational, and milieu therapies and will be offered additional individual and family sessions as clinically appropriate. -Start potassium 10 mEq po BID -Start risperidone 0.5mg BID po Mental Health & Subst Abuse Tx Therapist Name of Therapist: SANDRA Receivable Manager Name of Receivable Manager: [employer] Phone Number for Receivable Manager: [phone] Time of Appointment with Receivable Manager: please follow up to establish CM services Case Management Appointment Comment: [address], [address], [place] [address] Post Discharge Appointments Primary Care Physician Name Of Family Doctor/PCP: [facility] Date of Future Appointment with PCP: 12/24/2022 Time of Appointment with PCP: 1:25pm Provider Appointment Comment: [address] [place] [address] Contact Information Discharge Discharge Address: [address] [place] [address] , [place] [address] Discharge Plan Discharge Items Patient Disposition: Home - Self-Care Reason For Visit: PSYCHOSIS NOS Discharge Diagnosis: Substance-induced psychosis Activity: Resume your previous activity Non-emergency contact: Primary Care Provider and Co Director Call non-emergency contact if: you have any medication questions and your symptoms worsen Follow-up/Referrals: Nadia Hicks MD [Primary Care Provider] - Diet: Regular Addtl Attending Provider Instructions: Optional mobile apps: -Suicide safety plan -Virtual Hope Box SPECIAL CARE INSTRUCTIONS: 1. Follow through with your scheduled aftercare appointments. If unable to keep an appointment, please call to reschedule. 2. Take your medication only as prescribed. Medication should not be changed or stopped without the approval of your doctor. In the event of worsening symptoms or concerns about side effects, contact your doctor immediately. 3. Utilize new healthy coping skills, anger management skills, and stress management skills learned during your hospitalization. Journal feelings and process them with a support person. Identify stressors or situations that may result in relapse, deterioration or inappropriate behaviors and develop a plan to deal with those issues. 4. If your coping skills are ineffective and you are in crisis, contact your outpatient providers for direction. If unable to reach your providers, please call the [facility] CRISIS LINE AT , go to the [facility] walk-in center at [address], [address], [place], or go to the closest Emergency Room. 5. Avoid alcohol and un-prescribed drugs. 6. You have been provided with the Mental Health Advance Directives Pamphlet for your review. 7. Your condition is stable for discharge to outpatient level of care, but recovery is an ongoing process. Ifthoughts to harm yourself or others return, follow the safety plan developed during your stay. Planning for a safe return home includes securing weapons. Our treatment team recommends weaponsbe removed from the home until your outpatient provider reassesses your progress. In rare cases where the items themselvescannot be removed, guns and ammunitionshould be secured separatelyand keys stored by a reliable personoutside of the home. If you were admitted on an involuntary commitment, the police or other legal authorities may be involved in this process. AFTERCARE APPOINTMENTS: * Please call your insurance company prior to your scheduled appointment to confirm your aftercare providers are covered. Take your insurance information to your appointments. WHO TO CALL AND WHEN: Medical Emergencies: For questions or emergencies related to your hospital stay, please contact the Inpatient Behavioral Health Unit at [phone]. A senior genetic counselor is on-call 09/05 for the Behavioral Health Unit for emergencies At any time you feel your situation is an emergency, you may also call 911 immediately. Pending Studies at Discharge: No Stand-Alone Forms: My [facility], Smoking Cessation Medications and DC Order Prescriptions: New naloxone [Narcan] 4 mg/actuation spray,non-aerosol 4 mg intranasal ONCE PRN (Reason: opioid overdose) Qty: 2 0RF Discharge Orders: Discharge Order (Routine); Ordered 12/23/22 Ordered By: Jen Bangura/Other Patient Handouts: Naloxone Nasal for Overdose Steps Admission Data Admit Date/Time: 12/19/22 08:59 Attending Provider: Jen Chong Admit Provider: Jen Chong Primary Care Provider: Nadia Hicks Other Interventions: Discharge Summary Assessment (RN) Last Done: 12/23/22 12:00 PSY Interdisciplinary Discharge Planning Last Done: 12/22/22 12:15 Coding Level of Care Code 84262 D/C day mgmt > 30 min Diagnoses Substance-induced psychotic disorder F19.959 Substance use F19.90 Time Spent (min) 45
[2022-12-23 11:49] VITALS: TEMP 98.2
[2022-12-23 12:02] VITALS: BP 122/82; PULSE 85
[2022-12-24 15:38] LABS: Amphetamine Urine, Confirm 2658 ng/mL (<250); MDA negative; MDEA negative; MDMA (Ecstasy) Urine, Confirm negative; Methamphetamine, Ur Confirm >15000 ng/mL (<250)
== END 2022-12-23 13:03 | disposition home or self-care (01) | DRG 897 ==
LOC: ED 04:37 → 3S 08:59